=== PATIENT | female | born 1955 | race Caucasian/White ===

== ENCOUNTER 2017-01-05 08:09 | Outpatient (CLI) ==
--- NOTE | 2017-01-05 09:42 | MAMMO ---
EXAM: Bilateral digital screening mammogram (2-D and 3-D) History: Screening Comparison: Bilateral mammogram 05/01/2014 Findings: MLO and CC views of bilateral breasts demonstrate scattered fibroglandular breast parenchy ma. CAD was reviewed by the radiologist. Tomosynthesis was performed. There are no dominant masses, no suspicious microcalcifications and no architectural distortions Impression: Stable negative mammogram. Recommend followup routine screening mammography in 1 year. BIRADS 1
== END 2017-01-05 08:10 | disposition home or self-care (01) ==
LOC: RAD 08:09
PROVIDERS: ATTEND Family Medicine
DX: Z12.31 Encounter for screening mammogram for malignant neoplasm of breast (principal)
CPT/HCPCS: 77067

== ENCOUNTER 2018-01-30 | Outpatient (RCR) | END 2018-02-04 23:59 | disposition short-term general hospital (02) ==

== ENCOUNTER 2018-03-06 14:00 | Outpatient (RCR) ==
--- NOTE | 2018-02-06 15:33 | RS.OPPTDN ---
Subjective Date of Note: 02/06/18 Visit #: 3 Number of visits approved by Insurance: NA Date of Evaluation: 01/30/18 Payer Source: Insurance Treatment Diagnosis: acute complete traumatic rotator cuff tear, OA AC joint, impingement syn. Current Subjective/complaints:: Patient reports increased stuiffness today.She is doing the exercises for the hand/wrist and elbow.We discussed for her to do the pendulum exercises to assist with stiffness. *Precautions: must wear sling at all times except during therapy. Pain Assessment - Pain Description Pain Location: R shoulder Pain Description: Dull, Aching Current Pain Intensity: 2-3 at rest - Treatment Modality: Ultrasound Parameters/Method Applied: 10 mins. @ 1.5 w/cm 2 ,continuous mode to R shoulder. Patient Position: Supine - Heat/Cryotherapy Treatment: Cryotherapy Interventions - Exercise/Activities/Manual Therapy Exercises/Activities: 30 mins. PROM R shld flex, abd, ER.Began passive IR today also ( is now 3 weeks post-op ).HEP review is tominclude pendulum ex. Total minutes of Exercise: 30 Manual Therapy: N/A Total minutes of Manual Therapy: 0 HOME EXERCISE PROGRAM: pt given written HEP including: finger opposition, wrist flex/ext, forearm sup/pronation, elbow flex/ext, pendulum ex. - Charges Timed Code Treatment Minutes: 40 Total Treatment Time: 60 Procedures billed for this date of service:: ex 2, ,US , cp Short Term Goals Goal #1: pt independent with initial HEP Goal to be met by: 02/20/18 Progress towards Goal:: Progressing Goal #2: pt with improved AAROM R shld flex 65 abd 45 Goal to be met by: 02/20/18 (PROM) Progress towards Goal:: Progressing Goal #3: pt rate pain <7/10 with activity Goal to be met by: 02/20/18 Progress towards Goal:: Progressing Goal #4: pt able to don/doff brace independently Goal to be met by: 02/20/18 (NA) Progress towards Goal:: Progressing [employer] Goals Goal #1: pt with improved R shld ROM flex 110 abd 90, ER 45 Goal to be met by: 03/13/18 Goal #2: Improve strength R UE 4- to 4/5 Goal to be met by: 03/13/18 Goal #3: pt report ability to perform ADL's independently with less pain Goal to be met by: 03/13/18 Goal #4: Normal sleep pattern. Goal to be met by: 01/21/15 Plan Dates of Penitentiary Goals: 03/13/18 Expiration date of current Insurance Approval:: NA PLAN: Cont. skilled PT per RTC protocol,is now 3 weeks post-op.
--- NOTE | 2018-02-08 15:08 | RS.OPPTDN ---
Subjective Date of Note: 02/08/18 Visit #: 4 Number of visits approved by Insurance: NA Date of Evaluation: 01/30/18 Payer Source: Insurance Treatment Diagnosis: acute complete traumatic rotator cuff tear, OA AC joint, impingement syn. Current Subjective/complaints:: Reports the L shoulder is aching more today. *Precautions: must wear sling at all times except during therapy. Pain Assessment - Pain Description Pain Location: R shoulder Pain Description: Tightness, Dull, Aching Current Pain Intensity: 2 at rest Worst Pain Intensity: 6-7 with passive motion initially - Treatment Modality: Electrical Stim Unattended Parameters/Method Applied: high volt x 20 mins. 2 electrodes to R shoulder @ 45 -55 pv. Patient Position: Supine - Heat/Cryotherapy Treatment: Cryotherapy (concurrent with e-stim) Interventions - Exercise/Activities/Manual Therapy Exercises/Activities: 35 mins. PROM R shld flex, abd, ER/IR Total minutes of Exercise: 35 Manual Therapy: N/A Total minutes of Manual Therapy: 0 HOME EXERCISE PROGRAM: pt given written HEP including: finger opposition, wrist flex/ext, forearm sup/pronation, elbow flex/ext, pendulum ex. - Charges Timed Code Treatment Minutes: 35 Total Treatment Time: 55 Procedures billed for this date of service:: cp,e-stim,ex 2 Assessment: Increased guarding today ,but no loss of passive motion.Cont. per RTC protocol. Patient Education: Education of diagnosis, Body/Joint mechanics, Home Exercise Program, Home Safety, Activity Modification, Education of Plan of Care Patient demonstrates compliance with HEP?: Yes Short Term Goals Goal #1: pt independent with initial HEP Goal to be met by: 02/20/18 Progress towards Goal:: Progressing Goal #2: pt with improved AAROM R shld flex 65 abd 45 Goal to be met by: 02/20/18 (PROM) Progress towards Goal:: Progressing Goal #3: pt rate pain <7/10 with activity Goal to be met by: 02/20/18 Goal #4: pt able to don/doff brace independently Goal to be met by: 02/20/18 (NA) Progress towards Goal:: Progressing [facility] Goals Goal #1: pt with improved R shld ROM flex 110 abd 90, ER 45 Goal to be met by: 03/13/18 Goal #2: Improve strength R UE 4- to 4/5 Goal to be met by: 03/13/18 Goal #3: pt report ability to perform ADL's independently with less pain Goal to be met by: 03/13/18 Goal #4: Normal sleep pattern. Goal to be met by: 01/21/15 Progress towards goal: Progressing Plan Dates of Ob/Gyn Doctor Goals: 03/13/18 Expiration date of current Insurance Approval:: NA PLAN: Cont. skilled PT per RTC protocol as ordered by Dr. Chaney.
--- NOTE | 2018-02-11 15:12 | RS.OPPTDN ---
Subjective Date of Note: 02/11/18 Visit #: 5 Number of visits approved by Insurance: NA Date of Evaluation: 01/30/18 Payer Source: Insurance Treatment Diagnosis: acute complete traumatic rotator cuff tear, OA AC joint, impingement syn. Current Subjective/complaints:: Patient is compliant to wearing the sling , feels the R shoulder is a little better today. *Precautions: must wear sling at all times except during therapy. Pain Assessment - Pain Description Pain Location: R shoulder Pain Description: Dull, Aching Current Pain Intensity: 2/10 - Treatment Modality: Ultrasound Parameters/Method Applied: 10 mins. @ 1.5 w/cm2 ,cont. mode to R shoulder - Heat/Cryotherapy Treatment: Hot Pack (20 mis. prior to US) Interventions - Exercise/Activities/Manual Therapy Exercises/Activities: 30 mins. PROM R shld flex, abd, ER/IR Total minutes of Exercise: 30 Manual Therapy: N/A Total minutes of Manual Therapy: 0 HOME EXERCISE PROGRAM: pt given written HEP including: finger opposition, wrist flex/ext, forearm sup/pronation, elbow flex/ext, pendulum ex. - Charges Timed Code Treatment Minutes: 40 Total Treatment Time: 60 Procedures billed for this date of service:: hp,US,ex 2 Assessment: Patient has less intense R shoulder pain at rest,is les guarded as the passive ROM progresses.She is doing the hand,wrist ,elbow AROM ,along with pendulum exercises.She is compliant to wearing the sling and HEP . Patient Education: Education of diagnosis, Body/Joint mechanics, Home Exercise Program, Home Safety, Activity Modification, Education of Plan of Care Patient demonstrates compliance with HEP?: Yes Short Term Goals Goal #1: pt independent with initial HEP Goal to be met by: 02/20/18 Progress towards Goal:: Progressing Goal #2: pt with improved AAROM R shld flex 65 abd 45 Goal to be met by: 02/20/18 (PROM) Progress towards Goal:: Progressing Goal #3: pt rate pain <7/10 with activity Goal to be met by: 02/20/18 Progress towards Goal:: Progressing Goal #4: pt able to don/doff brace independently Goal to be met by: 02/20/18 (NA) Progress towards Goal:: Progressing [employer]per Goals Goal #1: pt with improved R shld ROM flex 110 abd 90, ER 45 Goal to be met by: 03/13/18 Goal #2: Improve strength R UE 4- to 4/5 Goal to be met by: 03/13/18 Goal #3: pt report ability to perform ADL's independently with less pain Goal to be met by: 03/13/18 Goal #4: Normal sleep pattern. Goal to be met by: 01/21/15 Progress towards goal: Progressing Plan Dates of Nursing Home Goals: 03/13/18 Expiration date of current Insurance Approval:: NA PLAN: Cont. skilled PT ,progress as the RTC protocol allows.
--- NOTE | 2018-02-13 15:18 | RS.OPPTDN ---
Subjective Date of Note: 02/13/18 Visit #: 6 Number of visits approved by Insurance: NA Date of Evaluation: 01/30/18 Payer Source: Insurance Treatment Diagnosis: acute complete traumatic rotator cuff tear, OA AC joint, impingement syn. Current Subjective/complaints:: Patient reports slight elevartion of her pain today. *Precautions: must wear sling at all times except during therapy. Pain Assessment - Pain Description Pain Location: R shoulder Pain Description: Dull, Aching Current Pain Intensity: 3-4/10 - Treatment Modality: Ultrasound Parameters/Method Applied: 10 mins. to R shoulder,cont. mode @1.5 w/cm2. Patient Position: Supine - Heat/Cryotherapy Treatment: Hot Pack (20 mins. to R shoulder prior to exercises) Interventions - Exercise/Activities/Manual Therapy Exercises/Activities: 20 mins. PROM R shld flex, abd, ER/IR Total minutes of Exercise: 20 Manual Therapy: N/A Total minutes of Manual Therapy: 0 HOME EXERCISE PROGRAM: pt given written HEP including: finger opposition, wrist flex/ext, forearm sup/pronation, elbow flex/ext, pendulum ex. - Charges Timed Code Treatment Minutes: 30 Total Treatment Time: 50 Procedures billed for this date of service:: hp,ex ,US Assessment: Patient is more guarded today due to increased pain ,but as the exercises progressed she relaxed better.The eccentric motions elevate her pain today ,but again ,this is due to muscle guarding.She is compliant to HEP and wearing the sling as instructed. Patient Education: Education of diagnosis, Body/Joint mechanics, Home Exercise Program, Home Safety, Activity Modification, Education of Plan of Care Patient demonstrates compliance with HEP?: Yes Short Term Goals Goal #1: pt independent with initial HEP Goal to be met by: 02/20/18 Progress towards Goal:: Progressing Goal #2: pt with improved AAROM R shld flex 65 abd 45 Goal to be met by: 02/20/18 (PROM) Progress towards Goal:: Progressing Goal #3: pt rate pain <7/10 with activity Goal to be met by: 02/20/18 Progress towards Goal:: Progressing Goal #4: pt able to don/doff brace independently Goal to be met by: 02/20/18 (NA) Progress towards Goal:: Progressing Detention Goals Goal #1: pt with improved R shld ROM flex 110 abd 90, ER 45 Goal to be met by: 03/13/18 Goal #2: Improve strength R UE 4- to 4/5 Goal to be met by: 03/13/18 Goal #3: pt report ability to perform ADL's independently with less pain Goal to be met by: 03/13/18 Goal #4: Normal sleep pattern. Goal to be met by: 01/21/15 Progress towards goal: Progressing Plan Dates of Detention Goals: 03/13/18 Expiration date of current Insurance Approval:: NA PLAN: Cont. skilled PT per RTC protocol,resulting increased strength and motion of the R shoulder without pain present.
--- NOTE | 2018-02-15 15:27 | RS.OPPTDN ---
Subjective Date of Note: 02/15/18 Visit #: 7 Number of visits approved by Insurance: NA Date of Evaluation: 01/30/18 Payer Source: Insurance Treatment Diagnosis: acute complete traumatic rotator cuff tear, OA AC joint, impingement syn. Current Subjective/complaints:: She reports she was able to get herself dressed more easily today.She is compliant to wearing sling . *Precautions: must wear sling at all times except during therapy. Pain Assessment - Pain Description Pain Location: R shoulder Pain Description: Dull, Aching Current Pain Intensity: 3 - Treatment Modality: Ultrasound Parameters/Method Applied: 10 mins. @ 1.5 w/cm2,continuous mode to R shoulder. Patient Position: Sitting - Heat/Cryotherapy Treatment: Hot Pack (20 mins. prior to exercises and US) Interventions - Exercise/Activities/Manual Therapy Exercises/Activities: 30 mins. (in sitting position today) of PROM R shld flex, abd, ER/IR,AROM for biceps curls,wrist flex/ext,sup/pronation. Total minutes of Exercise: 30 Manual Therapy: N/A HOME EXERCISE PROGRAM: pt given written HEP including: finger opposition, wrist flex/ext, forearm sup/pronation, elbow flex/ext, pendulum ex. - Charges Timed Code Treatment Minutes: 40 Total Treatment Time: 60 Procedures billed for this date of service:: hp,US ex 2 Assessment: Patient tolerating slight increase in PROM all directions ,now in sitting for exercises.She is compliant to HEP,doing pendulum exercises for gentle shoulder motion,wears sling as instructed . Patient Education: Education of diagnosis, Body/Joint mechanics, Home Exercise Program, Home Safety, Activity Modification, Education of Plan of Care Patient demonstrates compliance with HEP?: Yes Short Term Goals Goal #1: pt independent with initial HEP Goal to be met by: 02/20/18 Progress towards Goal:: Progressing Goal #2: pt with improved AAROM R shld flex 65 abd 45 Goal to be met by: 02/20/18 (PROM) Progress towards Goal:: Progressing Goal #3: pt rate pain <7/10 with activity Goal to be met by: 02/20/18 Progress towards Goal:: Progressing Goal #4: pt able to don/doff brace independently Goal to be met by: 02/20/18 (NA) Progress towards Goal:: Partially Met [employer] Goals Goal #1: pt with improved R shld ROM flex 110 abd 90, ER 45 Goal to be met by: 03/13/18 Goal #2: Improve strength R UE 4- to 4/5 Goal to be met by: 03/13/18 Goal #3: pt report ability to perform ADL's independently with less pain Goal to be met by: 03/13/18 Progress towards goal: Progressing Goal #4: Normal sleep pattern. Goal to be met by: 01/21/15 Progress towards goal: Progressing Plan Dates of [employer] Goals: 03/13/18 Expiration date of current Insurance Approval:: NA PLAN: Cont .skilled PT per RTC surgery,is 4 1/2 weeks post-op today.
--- NOTE | 2018-02-18 15:22 | RS.OPPTDN ---
Subjective Date of Note: 02/18/18 Visit #: 8 Number of visits approved by Insurance: NA Date of Evaluation: 01/30/18 Payer Source: Insurance Treatment Diagnosis: acute complete traumatic rotator cuff tear, OA AC joint, impingement syn. Current Subjective/complaints:: Reports the R shoulder pain is about the same as last visit. *Precautions: must wear sling at all times except during therapy. Pain Assessment - Pain Description Pain Location: R shoulder Pain Description: Dull, Aching - Treatment Modality: Ultrasound Parameters/Method Applied: 10 mins. @ 1.5 w/cm2,continuous mode to R shoulder area. - Heat/Cryotherapy Treatment: Hot Pack (20 mins. prior to exercises and US) Interventions - Exercise/Activities/Manual Therapy Exercises/Activities: 30 mins. (in sitting position today) of PROM R shld flex, abd, ER/IR,AROM for biceps curls,wrist flex/ext,sup/pronation. Total minutes of Exercise: 30 Manual Therapy: N/A Total minutes of Manual Therapy: 0 HOME EXERCISE PROGRAM: pt given written HEP including: finger opposition, wrist flex/ext, forearm sup/pronation, elbow flex/ext, pendulum ex. - Charges Timed Code Treatment Minutes: 40 Total Treatment Time: 60 Procedures billed for this date of service:: hp,ex 2,US Assessment: Patient has improved IR/ER passively in neutral position .She tolerates passive abduction with out increased pain.The initial shoulder elevation passively causes pain ,but this decreases as the reps. progress , along with cues to relax.She continues to be compliant to wearing the sling, also does HEP ,including the pendulum to relax the shoulder. Patient Education: Education of diagnosis, Body/Joint mechanics, Home Exercise Program, Home Safety, Activity Modification, Education of Plan of Care Patient demonstrates compliance with HEP?: Yes Short Term Goals Goal #1: pt independent with initial HEP Goal to be met by: 02/20/18 Progress towards Goal:: Progressing Goal #2: pt with improved AAROM R shld flex 65 abd 45 Goal to be met by: 02/20/18 (PROM) Progress towards Goal:: Progressing Goal #3: pt rate pain <7/10 with activity Goal to be met by: 02/20/18 Progress towards Goal:: Partially Met Goal #4: pt able to don/doff brace independently Goal to be met by: 02/20/18 (independent with doffing ) Progress towards Goal:: Partially Met [facility] Home Goals Goal #1: pt with improved R shld ROM flex 110 abd 90, ER 45 Goal to be met by: 03/13/18 Goal #2: Improve strength R UE 4- to 4/5 Goal to be met by: 03/13/18 (still doing PROM) Goal #3: pt report ability to perform ADL's independently with less pain Goal to be met by: 03/13/18 Progress towards goal: Progressing Goal #4: Normal sleep pattern. Goal to be met by: 01/21/15 Progress towards goal: Progressing Plan Dates of [employer] Goals: 03/13/18 Expiration date of current Insurance Approval:: NA PLAN: Continue RTC protocol,will be 5 weeks post-op tomorrow.
--- NOTE | 2018-02-20 15:23 | RS.OPPTDN ---
Subjective Date of Note: 02/20/18 Visit #: 9 Number of visits approved by Insurance: NA Date of Evaluation: 01/30/18 Payer Source: Insurance Treatment Diagnosis: acute complete traumatic rotator cuff tear, OA AC joint, impingement syn. Current Subjective/complaints:: Patient reports the R arm feels heavier today , but no increased aching or sharp pain currently.She continues to be compliant to wearing the sling.She was 5 weeks post-op yesterday. *Precautions: must wear sling at all times except during therapy. Pain Assessment - Pain Description Pain Location: R shoulder Pain Description: Dull, Aching Current Pain Intensity: 3 - Treatment Modality: Ultrasound Parameters/Method Applied: 10 mins. @ 1.5 w/cm2 ,continuous mode to R shoulder. - Heat/Cryotherapy Treatment: Hot Pack (20 mins. prior to exercises) Interventions - Exercise/Activities/Manual Therapy Exercises/Activities: 25 mins. (in sitting position today) of PROM R shld flex, abd, ER/IR,AROM for biceps curls,wrist flex/ext,sup/pronation.Pendulum exercises demonstrated to check her technique ( which is correct ). Total minutes of Exercise: 25 Manual Therapy: N/A Total minutes of Manual Therapy: 0 HOME EXERCISE PROGRAM: pt given written HEP including: finger opposition, wrist flex/ext, forearm sup/pronation, elbow flex/ext, pendulum ex. - Charges Timed Code Treatment Minutes: 35 Total Treatment Time: 55 Procedures billed for this date of service:: hp,ex 2,US Assessment: Patient has increased difficulty relaxing today with shoulder elevation ,but continues to tolerate the other motions well.We discussed the precautions ,as she is 5 weeks post-op,understands she is still in the passive phase ,will advance her exercises at the end of next week. Patient Education: Education of diagnosis, Body/Joint mechanics, Home Exercise Program, Home Safety, Activity Modification, Education of Plan of Care Patient demonstrates compliance with HEP?: Yes Short Term Goals Goal #1: pt independent with initial HEP Goal to be met by: 02/20/18 Progress towards Goal:: Progressing Goal #2: pt with improved AAROM R shld flex 65 abd 45 Goal to be met by: 02/20/18 (PROM) Progress towards Goal:: Progressing Goal #3: pt rate pain <7/10 with activity Goal to be met by: 02/20/18 Progress towards Goal:: Partially Met Goal #4: pt able to don/doff brace independently Goal to be met by: 02/20/18 (independent with doffing ) Progress towards Goal:: Partially Met (Able to doff,needs assist with donning) [facility] Goals Goal #1: pt with improved R shld ROM flex 110 abd 90, ER 45 Goal to be met by: 03/13/18 Goal #2: Improve strength R UE 4- to 4/5 Goal to be met by: 03/13/18 (still doing PROM) Goal #3: pt report ability to perform ADL's independently with less pain Goal to be met by: 03/13/18 Progress towards goal: Progressing Goal #4: Normal sleep pattern. Goal to be met by: 01/21/15 Progress towards goal: Progressing Plan Dates of [facility] Goals: 03/13/18 Expiration date of current Insurance Approval:: NA PLAN: Cont. skilled PT per RTC protocol,progress to Phase II at end of next week.
--- NOTE | 2018-02-22 15:32 | RS.OPPTDN ---
Subjective Date of Note: 02/22/18 Visit #: 10 Number of visits approved by Insurance: NA Date of Evaluation: 01/30/18 Payer Source: Insurance Treatment Diagnosis: acute complete traumatic rotator cuff tear, OA AC joint, impingement syn. Current Subjective/complaints:: Patient reports the R shoulder feels better today,slightly less pain. *Precautions: must wear sling at all times except during therapy. Pain Assessment - Pain Description Pain Location: R shoulder Pain Description: Dull, Aching Current Pain Intensity: 2 - Treatment Modality: Ultrasound Parameters/Method Applied: 10 mins. @ 1.5 w/cm2,cont. mode. Patient Position: Sitting - Heat/Cryotherapy Treatment: Hot Pack (20 mis. prior to ex and US) Interventions - Exercise/Activities/Manual Therapy Exercises/Activities: 30 mins. (in sitting position today) of PROM R shld flex, abd, ER/IR. Total minutes of Exercise: 30 Manual Therapy: N/A Total minutes of Manual Therapy: 0 HOME EXERCISE PROGRAM: pt given written HEP including: finger opposition, wrist flex/ext, forearm sup/pronation, elbow flex/ext, pendulum ex. - Charges Timed Code Treatment Minutes: 30 Total Treatment Time: 60 Procedures billed for this date of service:: hp,ex 2,US Assessment: Progressing well,less tightness at available end range of each motion.She relaxes more with eccentrics.The external rotation has a firmer end feel than other motions ,but she understands the RTC protocol and to not force any active motion.She continues to do HEP regularly,motivated to improve. Patient Education: Education of diagnosis, Body/Joint mechanics, Home Exercise Program, Home Safety, Activity Modification, Education of Plan of Care Patient demonstrates compliance with HEP?: Yes Short Term Goals Goal #1: pt independent with initial HEP Goal to be met by: 02/20/18 Progress towards Goal:: Progressing Goal #2: pt with improved AAROM R shld flex 65 abd 45 Goal to be met by: 02/20/18 (PROM) Progress towards Goal:: Progressing Goal #3: pt rate pain <7/10 with activity Goal to be met by: 02/20/18 Progress towards Goal:: Partially Met Goal #4: pt able to don/doff brace independently Goal to be met by: 02/20/18 (independent with doffing ) Progress towards Goal:: Partially Met (Able to doff,needs assist with donning) [employer] Goals Goal #1: pt with improved R shld ROM flex 110 abd 90, ER 45 Goal to be met by: 03/13/18 Progress towards goal: Progressing Goal #2: Improve strength R UE 4- to 4/5 Goal to be met by: 03/13/18 (still doing PROM) Goal #3: pt report ability to perform ADL's independently with less pain Goal to be met by: 03/13/18 Progress towards goal: Progressing Goal #4: Normal sleep pattern. Goal to be met by: 01/21/15 Progress towards goal: Progressing Plan Dates of Skilled Nursing Goals: 03/13/18 Expiration date of current Insurance Approval:: NA PLAN: Cont. skilled PT per RTC protocol.
--- NOTE | 2018-02-25 15:21 | RS.OPPTDN ---
Subjective Date of Note: 02/25/18 Visit #: 11 Number of visits approved by Insurance: NA Date of Evaluation: 01/30/18 Payer Source: Insurance Treatment Diagnosis: acute complete traumatic rotator cuff tear, OA AC joint, impingement syn. Current Subjective/complaints:: Patient reports minimal pain ,averaging 2/10 the past few days.She will be 6 weeks post-op tomorrow. *Precautions: must wear sling at all times except during therapy. Pain Assessment - Pain Description Pain Location: R shoulder Pain Description: Dull, Aching Current Pain Intensity: 2/10 - Treatment Modality: Ultrasound Parameters/Method Applied: 10 mins. @ 1.5 w/cm2 to R shoulder , continuous mode. Patient Position: Sitting - Heat/Cryotherapy Treatment: Hot Pack (20 mins. prior to exercises and US) Interventions - Exercise/Activities/Manual Therapy Exercises/Activities: 30 mins. (in sitting position today) of PROM R shld flex, abd, ER/IR.Isometrics ,5 reps. each of IR/ER with arm at side,abduction,forward flexion. Total minutes of Exercise: 30 Manual Therapy: N/A Total minutes of Manual Therapy: 0 HOME EXERCISE PROGRAM: pt given written HEP including: finger opposition, wrist flex/ext, forearm sup/pronation, elbow flex/ext, pendulum ex. - Charges Timed Code Treatment Minutes: 40 Total Treatment Time: 60 Procedures billed for this date of service:: hp,ex 2,US Assessment: Patient report less soreness throughout the day when at rest, tolerates the isometrics with slight discomfort ,especially with external rotation.The passive motion is functional for abd/scaption ,but limited and guarding present with rotation today.She is compliant to HEP. Patient Education: Education of diagnosis, Body/Joint mechanics, Home Exercise Program, Home Safety, Activity Modification, Education of Plan of Care Patient demonstrates compliance with HEP?: Yes Short Term Goals Goal #1: pt independent with initial HEP Goal to be met by: 02/20/18 Progress towards Goal:: Progressing Goal #2: pt with improved AAROM R shld flex 65 abd 45 Goal to be met by: 02/20/18 (PROM) Progress towards Goal:: Progressing Goal #3: pt rate pain <7/10 with activity Goal to be met by: 02/20/18 Progress towards Goal:: Partially Met Goal #4: pt able to don/doff brace independently Goal to be met by: 02/20/18 (independent with doffing ) Progress towards Goal:: Partially Met (Able to doff,needs assist with donning) Structural Engineer Goals Goal #1: pt with improved R shld ROM flex 110 abd 90, ER 45 Goal to be met by: 03/13/18 Progress towards goal: Progressing Goal #2: Improve strength R UE 4- to 4/5 Goal to be met by: 03/13/18 (still doing PROM,isometrics initiated today) Goal #3: pt report ability to perform ADL's independently with less pain Goal to be met by: 03/13/18 Progress towards goal: Progressing Goal #4: Normal sleep pattern. Goal to be met by: 01/21/15 Progress towards goal: Progressing Plan Dates of Structural Engineer Goals: 03/13/18 Expiration date of current Insurance Approval:: NA PLAN: Cont. skilled PT per RTC protocol,will be 6 weeks post-op tomorrow.
--- NOTE | 2018-02-27 16:01 | RS.OPPTDN ---
Subjective Date of Note: 02/27/18 Visit #: 12 Number of visits approved by Insurance: NA Date of Evaluation: 01/30/18 Payer Source: Insurance Treatment Diagnosis: acute complete traumatic rotator cuff tear, OA AC joint, impingement syn. Current Subjective/complaints:: Patient reports beginning the isometrics last session made her R shoulder very sore ,did not sleep well that night.We discussed we will hold the isometrics today and assess the pain on the next visit.She also reports working 3 hours today. *Precautions: must wear sling at all times except during therapy. Pain Assessment - Pain Description Pain Location: R shoulder Pain Description: Tightness, Dull, Aching, Chronic Current Pain Intensity: 10 - Treatment Modality: Ultrasound Parameters/Method Applied: 10 mins. @ 1.5 w/cm2 ,continuous mode to R shoulder. Patient Position: Sitting - Heat/Cryotherapy Treatment: Hot Pack (20 mins. prior to exercises and US) Interventions - Exercise/Activities/Manual Therapy Exercises/Activities: 30 mins. (in sitting position today) of PROM R shld flex, scaption,abd, ER/IR. Total minutes of Exercise: 30 Manual Therapy: N/A Total minutes of Manual Therapy: 0 HOME EXERCISE PROGRAM: pt given written HEP including: finger opposition, wrist flex/ext, forearm sup/pronation, elbow flex/ext, pendulum ex. - Charges Timed Code Treatment Minutes: 30 Total Treatment Time: 60 Procedures billed for this date of service:: hp,ex 2,US Assessment: Significant increase in muscle guarding present today with internal /external rotation with R UE in neutral position.She also has increased pain with return motion (eccentric) from shoulder elevation today.She also reports it has been approx. 4 hours since taking Ibuprofen.She reports pain meds. make her itch and cannot take them. Patient Education: Education of diagnosis, Body/Joint mechanics, Home Exercise Program, Home Safety, Activity Modification, Education of Plan of Care Patient demonstrates compliance with HEP?: Yes Short Term Goals Goal #1: pt independent with initial HEP Goal to be met by: 02/20/18 Progress towards Goal:: Progressing Goal #2: pt with improved AAROM R shld flex 65 abd 45 Goal to be met by: 02/20/18 (PROM) Progress towards Goal:: No Change Goal #3: pt rate pain <7/10 with activity Goal to be met by: 02/20/18 Progress towards Goal:: Partially Met (Pain slightly elevated at rest today , but increases significantly with passive motion today.) Goal #4: pt able to don/doff brace independently Goal to be met by: 02/20/18 (independent with doffing ) Progress towards Goal:: Partially Met (Able to doff,needs assist with donning) Long-Term Goals Goal #1: pt with improved R shld ROM flex 110 abd 90, ER 45 Goal to be met by: 03/13/18 Progress towards goal: No Change Goal #2: Improve strength R UE 4- to 4/5 Goal to be met by: 03/13/18 (PROM only) Goal #3: pt report ability to perform ADL's independently with less pain Goal to be met by: 03/13/18 Progress towards goal: No Change Goal #4: Normal sleep pattern. Goal to be met by: 01/21/15 Progress towards goal: Regressing (Reports not sleeping Sunday night after last session) Plan Dates of Long-Term Goals: 03/13/18 Expiration date of current Insurance Approval:: NA PLAN: Cont skilled PT per RTC protocol,discuss patient status with supervising PT.She was 6 weeks post-op yesterday.
--- NOTE | 2018-03-01 15:25 | RS.OPPTDN ---
Subjective Date of Note: 03/01/18 Visit #: 13 Number of visits approved by Insurance: NA Date of Evaluation: 01/30/18 Payer Source: Insurance Treatment Diagnosis: acute complete traumatic rotator cuff tear, OA AC joint, impingement syn. Current Subjective/complaints:: Patient reports the shoulder feel slightly better today,slept better last night. *Precautions: must wear sling at all times except during therapy. Pain Assessment - Pain Description Pain Location: R shoulder Pain Description: Tightness, Dull, Aching, Chronic Current Pain Intensity: 3/10 - Heat/Cryotherapy Treatment: Cryotherapy (20 mins. after exercises) Interventions - Exercise/Activities/Manual Therapy Exercises/Activities: 40 mins. (in sitting position today) of PROM R shld flex, scaption,abd, ER/IR.Supervising PT present to asses her motion prior to REHAB OFFICE COORDINATOR doing the PROM. Total minutes of Exercise: 40 Manual Therapy: N/A Total minutes of Manual Therapy: 0 HOME EXERCISE PROGRAM: pt given written HEP including: finger opposition, wrist flex/ext, forearm sup/pronation, elbow flex/ext, pendulum ex. - Charges Timed Code Treatment Minutes: 40 Total Treatment Time: 60 Procedures billed for this date of service:: ex 3,cp Assessment: Patient less guarded today .The external rotation is improving slowly ,but the PT and this REHAB OFFICE COORDINATOR discussed due to her also having the excision of the distal clavicle could be a factor for the external rotation being limited.She has increased passve elevation/scaption,and abduction. Patient Education: Education of diagnosis, Body/Joint mechanics, Home Exercise Program, Home Safety, Activity Modification, Education of Plan of Care Patient demonstrates compliance with HEP?: Yes Short Term Goals Goal #1: pt independent with initial HEP Goal to be met by: 02/20/18 Progress towards Goal:: Partially Met (Not progressed to AROM due to being 6 1/ 2 weeks post-op today) Goal #2: pt with improved AAROM R shld flex 65 abd 45 Goal to be met by: 02/20/18 (PROM only per protocol) Goal #3: pt rate pain <7/10 with activity Goal to be met by: 02/20/18 Progress towards Goal:: Partially Met (3/10 pain most of this week,but is not doing active ROM as limited by the RTC protocol) Goal #4: pt able to don/doff brace independently Goal to be met by: 02/20/18 (independent with doffing ) Progress towards Goal:: Partially Met (Able to doff,needs assist with donning) Shelter Goals Goal #1: pt with improved R shld ROM flex 110 abd 90, ER 45 Goal to be met by: 03/13/18 Progress towards goal: No Change Goal #2: Improve strength R UE 4- to 4/5 Goal to be met by: 03/13/18 (PROM only) Goal #3: pt report ability to perform ADL's independently with less pain Goal to be met by: 03/13/18 Progress towards goal: No Change Goal #4: Normal sleep pattern. Goal to be met by: 01/21/15 Progress towards goal: Regressing (Reports not sleeping Sunday night after last session) Plan Dates of Paper Bag Inspector Goals: 03/13/18 Expiration date of current Insurance Approval:: NA PLAN: Cont. skilled PT per RTC protocol,strengthening and stretching exercises to achieve PLOF in the R shoulder.
--- NOTE | 2018-03-04 15:16 | RS.OPPTDN ---
Subjective Date of Note: 03/04/18 Visit #: 14 Number of visits approved by Insurance: NA Date of Evaluation: 01/30/18 Payer Source: Insurance Treatment Diagnosis: acute complete traumatic rotator cuff tear, OA AC joint, impingement syn. 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 *Precautions: must wear sling at all times except during therapy. Pain Assessment - Pain Description Pain Location: R shoulder Pain Description: Dull, Aching Current Pain Intensity: 3/10 - Heat/Cryotherapy Treatment: Hot Pack (heat 20 mins. prior to exercises,cold 15 mins. after), Cryotherapy Interventions - Exercise/Activities/Manual Therapy Exercises/Activities: 30 mins. (in supine position today for shoulder elevation ),biceps/triceps with elbow at side,IR/ER actively in pain free ROM.Isometrics only to R shoulder in all directions per protocol.(Beginning Phase II today.) Total minutes of Exercise: 30 Manual Therapy: N/A Total minutes of Manual Therapy: 0 HOME EXERCISE PROGRAM: pt given written HEP including: finger opposition, wrist flex/ext, forearm sup/pronation, elbow flex/ext, pendulum ex. - Charges Timed Code Treatment Minutes: 30 Total Treatment Time: 65 Procedures billed for this date of service:: hp,ex 2,cp Assessment: Progressing well,increased passive motion with less guarding present today.She tolerates the AROM of biceps/triceps without difficulty.The active IR/ER with arm at side elicits slight increase in pain at available end range.She is attentive and compliant to RTC protocol. Patient Education: Education of diagnosis, Body/Joint mechanics, Home Exercise Program, Home Safety, Activity Modification, Education of Plan of Care Patient demonstrates compliance with HEP?: Yes Short Term Goals Goal #1: pt independent with initial HEP Goal to be met by: 02/20/18 Progress towards Goal:: Partially Met (Not progressed to AROM due to beginning phase II ,7 weeks post-op tomorrow.) Goal #2: pt with improved AAROM R shld flex 65 abd 45 Goal to be met by: 02/20/18 Progress towards Goal:: Met Goal #3: pt rate pain <7/10 with activity Goal to be met by: 02/20/18 Progress towards Goal:: Progressing Goal #4: pt able to don/doff brace independently Goal to be met by: 02/20/18 (independent with doffing ) Progress towards Goal:: Partially Met (Able to doff,needs assist with donning) Assisted Goals Goal #1: pt with improved R shld ROM flex 110 abd 90, ER 45 Goal to be met by: 03/13/18 Progress towards goal: Progressing Goal #2: Improve strength R UE 4- to 4/5 Goal to be met by: 03/13/18 Progress towards goal: Progressing Goal #3: pt report ability to perform ADL's independently with less pain Goal to be met by: 03/13/18 Goal #4: Normal sleep pattern. Goal to be met by: 01/21/15 Progress towards goal: Progressing Plan Dates of Assisted Goals: 03/13/18 Expiration date of current Insurance Approval:: NA PLAN: Progress per RTC protocol,beginning Phase II ( week 7 - 9 ),including AROM for biceps/triceps ,isometrics only for shoulder strengthening.
--- NOTE | 2018-03-06 15:11 | RS.OPPTDN ---
Subjective Date of Note: 03/06/18 Visit #: 15 Number of visits approved by Insurance: NA Date of Evaluation: 01/30/18 Payer Source: Insurance Treatment Diagnosis: acute complete traumatic rotator cuff tear, OA AC joint, impingement syn. Current Subjective/complaints:: Patient had follow-up appt. today at [facility]good report She has orders to continue PT per RTC protocol.She is to wear sling at work and while sleeping. *Precautions: must wear sling at all times except during therapy. Pain Assessment - Pain Description Pain Location: R shoulder Pain Description: Dull, Aching Current Pain Intensity: 2/10 - Heat/Cryotherapy Treatment: Hot Pack (20 mins. prior to exercises) Interventions - Exercise/Activities/Manual Therapy Exercises/Activities: 30 mins. (in supine position today for shoulder elevation) ,biceps/triceps with elbow at side,IR/ER actively in pain free ROM.Isometrics only to R shoulder in all directions per protocol.( Phase II now). Total minutes of Exercise: 30 Manual Therapy: N/A Total minutes of Manual Therapy: 0 HOME EXERCISE PROGRAM: pt given written HEP including: finger opposition, wrist flex/ext, forearm sup/pronation, elbow flex/ext, pendulum ex. - Charges Timed Code Treatment Minutes: 30 Total Treatment Time: 65 Procedures billed for this date of service:: hp,ex 2,cp Assessment: Continues to progress well,has increased PROM ,also has less intensity of pain with AAROM in all directions.She is compliant to RTC protocol. Patient Education: Education of diagnosis, Body/Joint mechanics, Home Exercise Program, Home Safety, Activity Modification, Education of Plan of Care Patient demonstrates compliance with HEP?: Yes Short Term Goals Goal #1: pt independent with initial HEP Goal to be met by: 02/20/18 Progress towards Goal:: Partially Met (Not progressed to AROM due to beginning phase II ,7 weeks post-op tomorrow.) Goal #2: pt with improved AAROM R shld flex 65 abd 45 Goal to be met by: 02/20/18 Progress towards Goal:: Met Goal #3: pt rate pain <7/10 with activity Goal to be met by: 02/20/18 Progress towards Goal:: Progressing Goal #4: pt able to don/doff brace independently Goal to be met by: 02/20/18 (independent with doffing ) Progress towards Goal:: Partially Met (Able to doff,needs assist with donning) Ultrasound Tech Goals Goal #1: pt with improved R shld ROM flex 110 abd 90, ER 45 Goal to be met by: 03/13/18 Progress towards goal: Progressing Goal #2: Improve strength R UE 4- to 4/5 Goal to be met by: 03/13/18 Progress towards goal: Progressing Goal #3: pt report ability to perform ADL's independently with less pain Goal to be met by: 03/13/18 Progress towards goal: Progressing Goal #4: Normal sleep pattern. Goal to be met by: 01/21/15 Progress towards goal: Progressing Plan Dates of Ultrasound Tech Goals: 03/13/18 Expiration date of current Insurance Approval:: NA PLAN: Cont. per RTC protocol,has new PT orders today ,still in Phase II.
== END 2018-03-07 23:59 ==
PROVIDERS: ATTEND Orthopaedic Surgery
DX: M75.101 Unspecified rotator cuff tear or rupture of right shoulder, not specified as traumatic (principal); M25.511 Pain in right shoulder; M25.611 Stiffness of right shoulder, not elsewhere classified; M62.81 Muscle weakness (generalized); Z98.890 Other specified postprocedural states

== ENCOUNTER 2018-03-20 15:00 | Outpatient (RCR) ==
--- NOTE | 2018-03-08 15:12 | RS.OPPTDN ---
Subjective Date of Note: 03/08/18 Visit #: 16 Number of visits approved by Insurance: NA Date of Evaluation: 01/30/18 Payer Source: Insurance Treatment Diagnosis: acute complete traumatic rotator cuff tear, OA AC joint, impingement syn. Current Subjective/complaints:: Patient reports increased difficulty sleeping last night ,but slept well two nights ago.She is working half days now,wearing sling at work or at home in bed. *Precautions: must wear sling at all times except during therapy. Pain Assessment - Pain Description Pain Description: Crushing (R shoulder), Dull, Aching, Chronic Current Pain Intensity: 4/10 - Heat/Cryotherapy Treatment: Hot Pack, Cryotherapy (20 mins. heat before ex,15 mins. cold after) Interventions - Exercise/Activities/Manual Therapy Exercises/Activities: 30 mins. (in supine position today for shoulder elevation) ,biceps/triceps with elbow at side,IR/ER actively in pain free ROM.Isometrics only to R shoulder in all directions per protocol.( Phase II now). Total minutes of Exercise: 30 Manual Therapy: N/A Total minutes of Manual Therapy: 0 HOME EXERCISE PROGRAM: pt given written HEP including: finger opposition, wrist flex/ext, forearm sup/pronation, elbow flex/ext, pendulum ex. - Charges Timed Code Treatment Minutes: 35 Total Treatment Time: 60 Procedures billed for this date of service:: hp,ex 2,cp Assessment: Patient continues to have improved passive rOM ,tolerates isometrics today with less pain .She is compliant to wearing sling as directed.The external rotation is the position that is the most uncomfortable to her .We discussed safety precautions,reminded to strengthen the biceps/ triceps,but no shoulder strengthening at this time. Patient Education: Education of diagnosis, Body/Joint mechanics, Home Exercise Program, Home Safety, Activity Modification, Education of Plan of Care Patient demonstrates compliance with HEP?: Yes Short Term Goals Goal #1: pt independent with initial HEP Goal to be met by: 02/20/18 Progress towards Goal:: Partially Met (Not progressed to AROM due to beginning phase II ,7 weeks post-op tomorrow.) Goal #2: pt with improved AAROM R shld flex 65 abd 45 Goal to be met by: 02/20/18 Progress towards Goal:: Met Goal #3: pt rate pain <7/10 with activity Goal to be met by: 02/20/18 Progress towards Goal:: Progressing Goal #4: pt able to don/doff brace independently Goal to be met by: 02/20/18 (independent with doffing ) Progress towards Goal:: Partially Met (Able to doff,needs assist with donning) Rail Loader Goals Goal #1: pt with improved R shld ROM flex 110 abd 90, ER 45 Goal to be met by: 03/13/18 Progress towards goal: Progressing Goal #2: Improve strength R UE 4- to 4/5 Goal to be met by: 03/13/18 Progress towards goal: Progressing Goal #3: pt report ability to perform ADL's independently with less pain Goal to be met by: 03/13/18 Progress towards goal: Progressing Goal #4: Normal sleep pattern. Goal to be met by: 01/21/15 Progress towards goal: Progressing Plan Dates of Rail Loader Goals: 03/13/18 Expiration date of current Insurance Approval:: NA PLAN: Cont. skilled PT per RTC protocol.
--- NOTE | 2018-03-11 15:12 | RS.OPPTDN ---
Subjective Date of Note: 03/11/18 Visit #: 17 Number of visits approved by Insurance: NA Date of Evaluation: 01/30/18 Payer Source: Insurance Treatment Diagnosis: acute complete traumatic rotator cuff tear, OA AC joint, impingement syn. Current Subjective/complaints:: Patient reports being out of sling all day yesterday,is compliant to wearing it at work or when sleeping. *Precautions: 03-06 ,patient is to wear sling at work or sleeping ,no abd. pillow Pain Assessment - Pain Description Pain Location: R shoulder Pain Description: Dull, Aching, Chronic Current Pain Intensity: 05/15 - Heat/Cryotherapy Treatment: Hot Pack, Cryotherapy (hot before/cold after exercises) Interventions - Exercise/Activities/Manual Therapy Exercises/Activities: 30 mins. sitting today,biceps/tricepsAROM with 1# and yellow theraband with elbow at side,IR/ER actively in pain free ROM.Isometrics only to R shoulder in all directions per protocol.( Phase II now). Total minutes of Exercise: 30 Manual Therapy: N/A Total minutes of Manual Therapy: 0 HOME EXERCISE PROGRAM: pt given written HEP including: finger opposition, wrist flex/ext, forearm sup/pronation, elbow flex/ext, pendulum ex. - Objective Findings Observations,measurements,etc.: Passive abduction 85 ,scaption to 120,IR/ER with arm at side 45 -50 degrees. - Charges Timed Code Treatment Minutes: 30 Total Treatment Time: 60 Procedures billed for this date of service:: hp,ex 2,cp Assessment: Patient progressing as expected by the protocol ,will be 8 weeks post-op. tomorrow.She is gradually increasing her daily activities ,working more ,is aware to wear sling at work or while asleep.She still needs cues to relax ,especially with eccentric motion ,returning from assisted elevation. Patient Education: Education of diagnosis, Body/Joint mechanics, Home Exercise Program, Home Safety, Activity Modification, Education of Plan of Care Patient demonstrates compliance with HEP?: Yes Short Term Goals Goal #1: pt independent with initial HEP Goal to be met by: 02/20/18 Progress towards Goal:: Partially Met (Not progressed to AROM due to beginning phase II ,7 weeks post-op tomorrow.) Goal #2: pt with improved AAROM R shld flex 65 abd 45 Goal to be met by: 02/20/18 Progress towards Goal:: Met Goal #3: pt rate pain <7/10 with activity Goal to be met by: 02/20/18 Progress towards Goal:: Progressing Comments:: Her activity is limited per the protocol,but pain is less than 7 generally Goal #4: pt able to don/doff brace independently Goal to be met by: 02/20/18 (independent with doffing ) Progress towards Goal:: Met (Able to doff,needs assist with donning) Chief Science Officer Goals Goal #1: pt with improved R shld ROM flex 110 abd 90, ER 45 Goal to be met by: 03/13/18 Progress towards goal: Progressing Goal #2: Improve strength R UE 4- to 4/5 Goal to be met by: 03/13/18 Progress towards goal: Progressing Comments: Increased in biceps/triceps ,but shoulder strengthening is not allowed yet Goal #3: pt report ability to perform ADL's independently with less pain Goal to be met by: 03/13/18 Progress towards goal: Progressing Goal #4: Normal sleep pattern. Goal to be met by: 01/21/15 Progress towards goal: Partially Met (Reports sleeping better longer,but sleeps on sofa propped up partially) Plan Dates of Chief Science Officer Goals: 03/13/18 Expiration date of current Insurance Approval:: NA PLAN: Cont. skilled PT ,is in PHASE II of RTC protocol.
--- NOTE | 2018-03-13 15:06 | RS.OPPTDN ---
Subjective Date of Note: 03/13/18 Visit #: 18 Number of visits approved by Insurance: NA Date of Evaluation: 01/30/18 Payer Source: Insurance Treatment Diagnosis: acute complete traumatic rotator cuff tear, OA AC joint, impingement syn. Current Subjective/complaints:: Patient reports working close to 6 hours today, wearing the sling as directed. *Precautions: 03-06 ,patient is to wear sling at work or sleeping ,no abd. pillow Pain Assessment - Pain Description Pain Location: R shoulder Pain Description: Dull, Aching, Chronic Current Pain Intensity: 3-4/10 - Heat/Cryotherapy Treatment: Hot Pack, Cryotherapy (heat before /cold after exercises) Interventions - Exercise/Activities/Manual Therapy Exercises/Activities: 30 mins. sitting today,biceps/tricepsAROM with yellow theraband with elbow at side,IR/ER actively in pain free ROM.Isometrics only to R shoulder in all directions per protocol.( Phase II now).Pasive abduction @ 73, elevation @ 118 ,external rotation 54 degrees. Total minutes of Exercise: 30 Manual Therapy: N/A Total minutes of Manual Therapy: 0 HOME EXERCISE PROGRAM: pt given written HEP including: finger opposition, wrist flex/ext, forearm sup/pronation, elbow flex/ext, pendulum ex. - Charges Timed Code Treatment Minutes: 30 Total Treatment Time: 60 Procedures billed for this date of service:: hp,ex2,cp Assessment: Patient progressing ,has less muscle guarding present today as exercises progressed.She is gradually increasing her time at work.She is tolerating the eccentric motions with less pain today.The supervising PT present ,and we discussed the POC per RTC protocol with patient . Patient Education: Education of diagnosis, Body/Joint mechanics, Home Exercise Program, Home Safety, Activity Modification, Education of Plan of Care Patient demonstrates compliance with HEP?: Yes Short Term Goals Goal #1: pt independent with initial HEP Goal to be met by: 02/20/18 Progress towards Goal:: Partially Met (Not progressed to AROM due to beginning phase II ,7 weeks post-op tomorrow.) Goal #2: pt with improved AAROM R shld flex 65 abd 45 Goal to be met by: 02/20/18 Progress towards Goal:: Met Goal #3: pt rate pain <7/10 with activity Goal to be met by: 02/20/18 Progress towards Goal:: Met Goal #4: pt able to don/doff brace independently Goal to be met by: 02/20/18 Progress towards Goal:: Met (Able to doff,needs assist with donning) [facility] Goals Goal #1: pt with improved R shld ROM flex 110 abd 90, ER 45 Goal to be met by: 03/13/18 Progress towards goal: Progressing Goal #2: Improve strength R UE 4- to 4/5 Goal to be met by: 03/13/18 Progress towards goal: Progressing Goal #3: pt report ability to perform ADL's independently with less pain Goal to be met by: 03/13/18 Progress towards goal: Progressing Goal #4: Normal sleep pattern. Goal to be met by: 01/21/15 Progress towards goal: Partially Met (Reports sleeping better longer,but sleeps on sofa propped up partially) Plan Dates of Geriatric Physical Therapist Goals: 03/13/18 Expiration date of current Insurance Approval:: NA PLAN: Cont. skilled PT per RTC protocol,was 8 weeks post-op yesterday.
--- NOTE | 2018-03-13 15:28 | RS.PTSUM ---
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 pt reports that she has trouble placing RUE on desk to write due to pain. Objective Measurements/Presentation: ROM R shld: PROM flex 118, abd 73, ER 54. pt continues with pain at end ROM. No swelling noted in R UE. G Codes: n/a Source of G Code Score: n/a - Short Term Goals Goal #1: pt independent with initial HEP Goal to be met by: 02/20/18 Progress towards Goal:: Met (pt independent with the initial HEP.) Goal #2: pt with improved AAROM R shld flex 65 abd 45 Goal to be met by: 02/20/18 Progress towards Goal:: Met Goal #3: pt rate pain <7/10 with activity Goal to be met by: 02/20/18 Progress towards Goal:: Met Goal #4: pt able to don/doff brace independently Goal to be met by: 02/20/18 Progress towards Goal:: Met (Able to doff,needs assist with donning) - Rotary Planer Set Up Operator Goals Goal #1: pt with improved R shld ROM flex 125 abd 90, ER 60 Goal to be met by: 04/10/18 (goal modified partially met on 03/13/18 flex, ER abd only 73) Goal #2: Improve strength R UE 4- to 4/5 Goal to be met by: 04/10/18 Goal #3: pt report ability to perform ADL's independently with less pain Goal to be met by: 04/10/18 (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 Progress towards goal: Partially Met - Assessment Assessment of Improvement/Progress: pt has met all STG's. pt continues to be limited with ROM, strength, pain in R shld which is limiting functional mobility of RUE. Feel pt would continue to benefit from skilled PT to continue strengthening, stretching, to improve functional mobility. Summary: Patient has made progress towards goals., Patient demonstrates potential to gain increased function with therapy - Plan Plan: Continue Plan of Care (New order received to continue PT.) Frequency: 2-3 x a week Duration: 4 weeks Dates of Rotary Planer Set Up Operator Goals: 04/10/18 Expiration date of current Insurance Approval:: n/a
--- NOTE | 2018-03-15 15:01 | RS.OPPTDN ---
Subjective Date of Note: 03/15/18 Visit #: 19 Number of visits approved by Insurance: NA Date of Evaluation: 01/30/18 Payer Source: Insurance Treatment Diagnosis: acute complete traumatic rotator cuff tear, OA AC joint, impingement syn. Current Subjective/complaints:: No c/o. *Precautions: 03-06 ,patient is to wear sling at work or sleeping ,no abd. pillow Pain Assessment - Pain Description Pain Location: R shoulder Pain Description: Dull, Aching, Chronic Current Pain Intensity: 3/10 - Heat/Cryotherapy Treatment: Hot Pack, Cryotherapy (heat before exercises,cold after) Interventions - Exercise/Activities/Manual Therapy Exercises/Activities: 35 mins. reclined today,biceps/tricepsAROM with red theraband with elbow at side,IR/ER actively in pain free ROM.AAROM with 1 # wand for chest press,elevation ,IR/ER with arm at side. Total minutes of Exercise: 35 Manual Therapy: N/A Total minutes of Manual Therapy: 0 HOME EXERCISE PROGRAM: pt given written HEP including: finger opposition, wrist flex/ext, forearm sup/pronation, elbow flex/ext, pendulum ex. - Charges Timed Code Treatment Minutes: 35 Total Treatment Time: 60 Procedures billed for this date of service:: hp,ex 2,cp Assessment: Progressing ,has less muscle guarding present with each exercise today.Her passive and AAROM is increased.Her pain is averaging 3/10 ,but less frequent throughout the day.She continues to be compliant to recomendations of therapy staff. Patient Education: Education of diagnosis, Body/Joint mechanics, Home Exercise Program, Home Safety, Activity Modification, Education of Plan of Care Patient demonstrates compliance with HEP?: Yes Short Term Goals Goal #1: pt independent with initial HEP Goal to be met by: 02/20/18 Progress towards Goal:: Met (pt independent with the initial HEP.) Goal #2: pt with improved AAROM R shld flex 65 abd 45 Goal to be met by: 02/20/18 Progress towards Goal:: Met Goal #3: pt rate pain <7/10 with activity Goal to be met by: 02/20/18 Progress towards Goal:: Met Goal #4: pt able to don/doff brace independently Goal to be met by: 02/20/18 Progress towards Goal:: Met (Able to doff,needs assist with donning) Nutrient Management Specialist Goals Goal #1: pt with improved R shld ROM flex 125 abd 90, ER 60 Goal to be met by: 04/10/18 (goal modified partially met on 03/13/18 flex, ER abd only 73) Goal #2: Improve strength R UE 4- to 4/5 Goal to be met by: 04/10/18 Goal #3: pt report ability to perform ADL's independently with less pain Goal to be met by: 04/10/18 (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 Progress towards goal: Partially Met Plan Dates of Custodial Goals: 04/10/18 Expiration date of current Insurance Approval:: NA PLAN: Cont. skilled PT per RTC protocol,resulting in increased R shoulder motion /strength ,return to PLOF.
--- NOTE | 2018-03-18 16:18 | RS.OPPTDN ---
Subjective Date of Note: 03/18/18 Visit #: 20 Number of visits approved by Insurance: NA Date of Evaluation: 01/30/18 Payer Source: Insurance Treatment Diagnosis: acute complete traumatic rotator cuff tear, OA AC joint, impingement syn. Current Subjective/complaints:: Patient reports exercising the R UE frequently over the weekend.She is also working more hours this week,6-7 hour shift. *Precautions: 03-06 ,patient is to wear sling at work or sleeping ,no abd. pillow Pain Assessment - Pain Description Pain Location: R shoulder Pain Description: Sharp, Dull, Aching, Chronic Pain Description: sharp pain is at available end ROM when stretching Current Pain Intensity: 4/10 - Heat/Cryotherapy Treatment: Hot Pack, Cryotherapy (heat before/cold after exercises,15 mins. each ) Interventions - Exercise/Activities/Manual Therapy Exercises/Activities: 35 mins. seated today,biceps/tricepsAROM with red theraband with elbow at side,IR/ER actively in pain free ROM.AAROM all planes, multple reps. Total minutes of Exercise: 35 Manual Therapy: N/A Total minutes of Manual Therapy: 0 HOME EXERCISE PROGRAM: pt given written HEP including: finger opposition, wrist flex/ext, forearm sup/pronation, elbow flex/ext, pendulum ex. - Charges Timed Code Treatment Minutes: 35 Total Treatment Time: 65 Procedures billed for this date of service:: hp,ex 2,cp Assessment: Patient continues to have increased ROM in all directions ,except the ER continues to have moderately firm end feel.She has slept the past couple of nights without the sling .This is more comfortable for her.She is very attentive and motivated to improve. Patient Education: Education of diagnosis, Body/Joint mechanics, Home Exercise Program, Home Safety, Activity Modification, Education of Plan of Care Patient demonstrates compliance with HEP?: Yes Short Term Goals Goal #1: pt independent with initial HEP Goal to be met by: 02/20/18 Progress towards Goal:: Met (pt independent with the initial HEP.) Goal #2: pt with improved AAROM R shld flex 65 abd 45 Goal to be met by: 02/20/18 Progress towards Goal:: Met Goal #3: pt rate pain <7/10 with activity Goal to be met by: 02/20/18 Progress towards Goal:: Met Goal #4: pt able to don/doff brace independently Goal to be met by: 02/20/18 Progress towards Goal:: Met (Able to doff,needs assist with donning) [facility] Goals Goal #1: pt with improved R shld ROM flex 125 abd 90, ER 60 Goal to be met by: 04/10/18 (goal modified partially met on 03/13/18 flex, ER abd only 73) Goal #2: Improve strength R UE 4- to 4/5 Goal to be met by: 04/10/18 (N/A) Goal #3: pt report ability to perform ADL's independently with less pain Goal to be met by: 04/10/18 Progress towards goal: Progressing Goal #4: . Plan Dates of [facility] Goals: 04/10/18 Expiration date of current Insurance Approval:: NA PLAN: Cont. skilled PT per RTC protocol.
--- NOTE | 2018-03-20 15:20 | RS.CSNOTE ---
PT Case Note Date of Note: 03/20/18 Note: pt arrived and told Doug Guy PICC NURSE she suffered a fall yesterday in her home landing on R UE. PT and PICC NURSE spoke with patient and she reports significant increase in pain and decrease in ROM. Called and spoke with Kishan TURNER with Dr. Chaney and he advised to hold PT today and to have pt come in for appt at 9am 03/21/18. pt agreeable and will call physical therapy regarding future appts after ortho visit. Number of visits approved by Insurance: n/a Expiration date of current Insurance Approval:: n/a
== END 2018-04-04 23:59 ==
PROVIDERS: ATTEND Orthopaedic Surgery
DX: M75.121 Complete rotator cuff tear or rupture of right shoulder, not specified as traumatic (principal); M25.511 Pain in right shoulder; M25.611 Stiffness of right shoulder, not elsewhere classified; Z98.890 Other specified postprocedural states; M62.81 Muscle weakness (generalized)

== ENCOUNTER 2018-04-19 15:15 | Outpatient (RCR) ==
--- NOTE | 2018-04-05 16:21 | RS.PTSUM ---
Progress Note/Summary Date of Note: 04/05/18 Date of Evaluation: 01/30/18 Number of Visits: 21 Number of visits approved by Insurance: n/a Reporting Period for this Progress Note: 03/13/18-04/05/18 Current Complaints/Gains: pt suffered a fall on 03/20/18 and had increased pain. pt returned to MD who placed therapy on hold. pt returned to MD on 04/03/18 and gave pt order to return for therapy. pt reports MD also dc her sling. pt has begun to work full shifts at work. Objective Measurements/Presentation: ROM R shld AROM 118 flex, Abd 85, ER 61. pt progressing with decreased pain with ROM, reports is a dull ache. G Codes: n/a Source of G Code Score: n/a - Short Term Goals Goal #1: pt independent with initial HEP Goal to be met by: 02/20/18 Progress towards Goal:: Met (pt independent with the initial HEP.) Goal #2: pt with improved AAROM R shld flex 65 abd 45 Goal to be met by: 02/20/18 Progress towards Goal:: Met Goal #3: pt rate pain <7/10 with activity Goal to be met by: 02/20/18 Progress towards Goal:: Met Goal #4: pt able to don/doff brace independently Goal to be met by: 02/20/18 Progress towards Goal:: Met (Able to doff,needs assist with donning) - Yard Conductor Goals Goal #1: pt with improved R shld ROM flex 125 abd 90, ER 60 Goal to be met by: 04/19/18 (goal modified partially met on 03/13/18 flex, ER abd only 73) Progress towards goal: Progressing Goal #2: Improve strength R UE 4- to 4/5 Goal to be met by: 04/19/18 (N/A) Progress towards goal: Progressing Goal #3: pt report ability to perform ADL's independently with less pain Goal to be met by: 04/19/18 Progress towards goal: Progressing Goal #4: . - Assessment Assessment of Improvement/Progress: pt has met STG and progressing toward LTG' s. pt progress was limited due to fall and MD placing PT on hold. pt is improving with AROM as well as strength. Summary: Patient has made progress towards goals., Patient demonstrates potential to gain increased function with therapy - Plan Plan: Continue Plan of Care (order received from MD) Frequency: 2 X week Duration: 2 weeks Dates of Yard Conductor Goals: 04/19/18 Expiration date of current Insurance Approval:: n/a
--- NOTE | 2018-04-05 16:27 | RS.OPPTDN ---
Subjective Date of Note: 04/05/18 Visit #: 21 Number of visits approved by Insurance: na Date of Evaluation: 01/30/18 Payer Source: Insurance Treatment Diagnosis: acute complete traumatic rotator cuff tear, OA AC joint, impingement syn. Current Subjective/complaints:: Pleased with her progress,reports the shoulder is feelng better. *Precautions: 03-06 ,patient is to wear sling at work or sleeping ,no abd. pillow Pain Assessment - Pain Description Pain Location: R shoulder Pain Description: Dull, Aching Pain Description: minimal aching Current Pain Intensity: not rated - Heat/Cryotherapy Treatment: Hot Pack (20 mins. prior to exercises) Interventions - Exercise/Activities/Manual Therapy Exercises/Activities: 40 mins. for passive to AROM in all planes today,pulleys x 10 mins.Reviewed RTC protocol,she is 11 1/2 weeks post-op.PT present for ROM assessment ,and POC. Total minutes of Exercise: 40 Manual Therapy: N/A Total minutes of Manual Therapy: 0 HOME EXERCISE PROGRAM: pt given written HEP including: finger opposition, wrist flex/ext, forearm sup/pronation, elbow flex/ext, pendulum ex. - Charges Timed Code Treatment Minutes: 40 Total Treatment Time: 60 Procedures billed for this date of service:: hp,ex 3 Assessment: Patient has increased active shoulder motion with less intense pain.She is very compliant to all recommendations for her R shoulder.She is now working a full shift with out elevation of pain.We discussed the POC withthe PT present,progress per protocol ,initiate D/C plan within the next 2 weeks or possibly sooner. Patient Education: Education of diagnosis, Body/Joint mechanics, Home Exercise Program, Home Safety, Activity Modification, Education of Plan of Care Patient demonstrates compliance with HEP?: Yes Short Term Goals Goal #1: pt independent with initial HEP Goal to be met by: 02/20/18 Progress towards Goal:: Met (pt independent with the initial HEP.) Goal #2: pt with improved AAROM R shld flex 65 abd 45 Goal to be met by: 02/20/18 Progress towards Goal:: Met Goal #3: pt rate pain <7/10 with activity Goal to be met by: 02/20/18 Progress towards Goal:: Met Goal #4: pt able to don/doff brace independently Goal to be met by: 02/20/18 Progress towards Goal:: Met (Able to doff,needs assist with donning) Millinery Copyist Goals Goal #1: pt with improved R shld ROM flex 125 abd 90, ER 60 Goal to be met by: 04/10/18 Progress towards goal: Progressing Goal #2: Improve strength R UE 4- to 4/5 Goal to be met by: 04/10/18 (N/A) Progress towards goal: Progressing Goal #3: pt report ability to perform ADL's independently with less pain Goal to be met by: 04/10/18 Progress towards goal: Met Goal #4: . Goal to be met by: 01/21/15 Plan Dates of Millinery Copyist Goals: 04/10/18 Expiration date of current Insurance Approval:: na PLAN: Cont. skilled PT per RTC protocol.she is 11 1/2 weeks post-op.
--- NOTE | 2018-04-08 16:16 | RS.OPPTDN ---
Subjective Date of Note: 04/08/18 Visit #: 22 Number of visits approved by Insurance: na Date of Evaluation: 01/30/18 Payer Source: Insurance Treatment Diagnosis: acute complete traumatic rotator cuff tear, OA AC joint, impingement syn. Current Subjective/complaints:: Patient reports the shoulder is better,and currently has no pain. *Precautions: 03-06 ,patient is to wear sling at work or sleeping ,no abd. pillow Pain Assessment - Pain Description Pain Location: R shoulder Current Pain Intensity: 0 - Heat/Cryotherapy Treatment: Hot Pack (20 mins. prior to exercises) Interventions - Exercise/Activities/Manual Therapy Exercises/Activities: 30 mins. for passive to AAROM / AROM in all planes today, pulleys x 10 mins.3# wand exercises ,added corner or doorway stretches today in PAIN FREE ROM. Total minutes of Exercise: 30 Manual Therapy: N/A Total minutes of Manual Therapy: 0 HOME EXERCISE PROGRAM: pt given written HEP including: finger opposition, wrist flex/ext, forearm sup/pronation, elbow flex/ext, pendulum ex. 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 Patient Education: Education of diagnosis, Body/Joint mechanics, Home Exercise Program, Home Safety, Activity Modification, Education of Plan of Care Patient demonstrates compliance with HEP?: Yes Short Term Goals Goal #1: pt independent with initial HEP Goal to be met by: 02/20/18 Progress towards Goal:: Met (pt independent with the initial HEP.) Goal #2: pt with improved AAROM R shld flex 65 abd 45 Goal to be met by: 02/20/18 Progress towards Goal:: Met Goal #3: pt rate pain <7/10 with activity Goal to be met by: 02/20/18 Progress towards Goal:: Met Goal #4: pt able to don/doff brace independently Goal to be met by: 02/20/18 Progress towards Goal:: Met (Able to doff,needs assist with donning) Registered Respiratory Therapist Goals Goal #1: pt with improved R shld ROM flex 125 abd 90, ER 60 Goal to be met by: 04/10/18 Progress towards goal: Progressing Goal #2: Improve strength R UE 4- to 4/5 Goal to be met by: 04/10/18 (N/A) Progress towards goal: Progressing Goal #3: pt report ability to perform ADL's independently with less pain Goal to be met by: 04/10/18 Progress towards goal: Met Goal #4: . Goal to be met by: 01/21/15 Plan Dates of Assisted Goals: 04/10/18 Expiration date of current Insurance Approval:: na PLAN: Cont . skilled PT per TC protocol,will be 12 weeks post-op this Sunday.
--- NOTE | 2018-04-12 16:24 | RS.OPPTDN ---
Subjective Date of Note: 04/12/18 Visit #: 23 Number of visits approved by Insurance: na Date of Evaluation: 01/30/18 Payer Source: Insurance Treatment Diagnosis: acute complete traumatic rotator cuff tear, OA AC joint, impingement syn. Current Subjective/complaints:: Reports slight aching today,but no pain present in the R shoulder.She reports sleeping better,is planning to try sleeping in the bed this weekend if possible .She has been sleeping on a sofa in reclined postion. Pain Assessment - Pain Description Pain Location: R shoulder Pain Description: Dull, Aching Pain Description: mnimal Current Pain Intensity: not rated - Heat/Cryotherapy Treatment: Hot Pack (20 mins. prior to exercises), Cryotherapy Interventions - Exercise/Activities/Manual Therapy Exercises/Activities: 35 mins. for passive to AAROM / AROM in all planes today, pulleys x 10 mins.5# wand exercises ,in supine for chest press,overhead flexion ,then 1 # wand for IR /ER.Reviewed protocol for RTC. Total minutes of Exercise: 35 Manual Therapy: N/A Total minutes of Manual Therapy: 0 HOME EXERCISE PROGRAM: pt given written HEP including: finger opposition, wrist flex/ext, forearm sup/pronation, elbow flex/ext, pendulum ex. 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 Patient Education: Education of diagnosis, Body/Joint mechanics, Home Exercise Program, Home Safety, Activity Modification, Education of Plan of Care Patient demonstrates compliance with HEP?: Yes Short Term Goals Goal #1: pt independent with initial HEP Goal to be met by: 02/20/18 Progress towards Goal:: Met (pt independent with the initial HEP.) Goal #2: pt with improved AAROM R shld flex 65 abd 45 Goal to be met by: 02/20/18 Progress towards Goal:: Met Goal #3: pt rate pain <7/10 with activity Goal to be met by: 02/20/18 Progress towards Goal:: Met Goal #4: pt able to don/doff brace independently Goal to be met by: 02/20/18 Progress towards Goal:: Met (Able to doff,needs assist with donning) [facility] Goals Goal #1: pt with improved R shld ROM flex 125 abd 90, ER 60 Goal to be met by: 04/19/18 Progress towards goal: Progressing Goal #2: Improve strength R UE 4- to 4/5 Goal to be met by: 04/19/18 (N/A) Progress towards goal: Progressing Goal #3: pt report ability to perform ADL's independently with less pain Goal to be met by: 04/19/18 Progress towards goal: Met Goal #4: . Plan Dates of [facility] Goals: 04/10/18 Expiration date of current Insurance Approval:: na PLAN: Cont. skilled per RTC protocol,maximizing strength and motion ,return to highest LOF.
--- NOTE | 2018-04-15 16:30 | RS.OPPTDN ---
Subjective Date of Note: 04/15/18 Visit #: 24 Number of visits approved by Insurance: na Date of Evaluation: 01/30/18 Payer Source: Insurance Treatment Diagnosis: acute complete traumatic rotator cuff tear, OA AC joint, impingement syn. Current Subjective/complaints:: No c/o. *Precautions: 03-06 ,patient is to wear sling at work or sleeping ,no abd. pillow Pain Assessment - Pain Description Pain Location: R shoulder Pain Description: Dull, Aching Pain Description: fatigued at end of work day Current Pain Intensity: not rated - Heat/Cryotherapy Treatment: Hot Pack, Cryotherapy (heat before exercises,ice after) Interventions - Exercise/Activities/Manual Therapy Exercises/Activities: 35 mins. for passive to AAROM / AROM in all planes today, pulleys x 10 mins.5# wand exercises ,in supine for chest press,overhead flexion ,then 1 # wand for IR /ER.Passive streching in all directions .Reviewed protocol for RTC. Total minutes of Exercise: 35 Manual Therapy: N/A Total minutes of Manual Therapy: 0 HOME EXERCISE PROGRAM: pt given written HEP including: finger opposition, wrist flex/ext, forearm sup/pronation, elbow flex/ext, pendulum ex. - Charges Timed Code Treatment Minutes: 35 Total Treatment Time: 60 Procedures billed for this date of service:: hp,ex 2,cp Assessment: Patient progresing well has increaased passive and active motion , increased strength in the R shoulder.She is very motivated to improve , compliant to RTC protocol.We discussed the D/c plan for next session due to good progress. Patient Education: Education of diagnosis, Body/Joint mechanics, Home Exercise Program, Home Safety, Activity Modification, Education of Plan of Care Patient demonstrates compliance with HEP?: Yes Short Term Goals Goal #1: pt independent with initial HEP Goal to be met by: 02/20/18 Progress towards Goal:: Met (pt independent with the initial HEP.) Goal #2: pt with improved AAROM R shld flex 65 abd 45 Goal to be met by: 02/20/18 Progress towards Goal:: Met Goal #3: pt rate pain <7/10 with activity Goal to be met by: 02/20/18 Progress towards Goal:: Met Goal #4: pt able to don/doff brace independently Goal to be met by: 02/20/18 Progress towards Goal:: Met (Able to doff,needs assist with donning) 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 Plan Dates of Longterm Goals: 04/10/18 Expiration date of current Insurance Approval:: na PLAN: Cont PT one more session ,plan to D/C,review RTC protocol.
--- NOTE | 2018-04-19 16:24 | RS.OPPTDN ---
Subjective Date of Note: 04/19/18 Visit #: 25 Number of visits approved by Insurance: na Date of Evaluation: 01/30/18 Payer Source: Insurance Treatment Diagnosis: acute complete traumatic rotator cuff tear, OA AC joint, impingement syn. Current Subjective/complaints:: Pleased with her progress , still has slight difficulty with reaching behind her at waist level,but understands not to force rotation. *Precautions: 03-06 ,patient is to wear sling at work or sleeping ,no abd. pillow Pain Assessment - Pain Description Pain Location: R shoulder Pain Description: Dull, Aching Current Pain Intensity: not rated - Heat/Cryotherapy Treatment: Hot Pack (20 mis. prior to exercises) Interventions - Exercise/Activities/Manual Therapy Exercises/Activities: 40 mins. for passive to AAROM / AROM in all planes today, UE functional scale done with 62/80 score.HEP review and return demo of exercises.AROM measurements taken ,fefer to D/C by supervising PT. Total minutes of Exercise: 40 Manual Therapy: N/A HOME EXERCISE PROGRAM: pt given written HEP including: finger opposition, wrist flex/ext, forearm sup/pronation, elbow flex/ext, pendulum ex. - Charges Timed Code Treatment Minutes: 40 Total Treatment Time: 60 Procedures billed for this date of service:: hp,ex 3 Assessment: Goals met,is aware of D/C plan today. Patient Education: Education of diagnosis, Body/Joint mechanics, Home Exercise Program, Home Safety, Activity Modification, Education of Plan of Care Patient demonstrates compliance with HEP?: Yes Short Term Goals Goal #1: pt independent with initial HEP Goal to be met by: 02/20/18 Progress towards Goal:: Met (pt independent with the initial HEP.) Goal #2: pt with improved AAROM R shld flex 65 abd 45 Goal to be met by: 02/20/18 Progress towards Goal:: Met Goal #3: pt rate pain <7/10 with activity Goal to be met by: 02/20/18 Progress towards Goal:: Met Goal #4: pt able to don/doff brace independently Goal to be met by: 02/20/18 Progress towards Goal:: Met (Able to doff,needs assist with donning) Snf Goals Goal #1: pt with improved R shld ROM flex 125 abd 90, ER 60 Goal to be met by: 04/19/18 Progress towards goal: Met Goal #2: Improve strength R UE 4- to 4/5 Goal to be met by: 04/19/18 (N/A) Progress towards goal: Met Goal #3: pt report ability to perform ADL's independently with less pain Goal to be met by: 04/19/18 Progress towards goal: Met Goal #4: . Plan Dates of Video Coordinator Goals: 04/10/18 Expiration date of current Insurance Approval:: 04/19/18 PLAN: D/C due to good progress.
--- NOTE | 2018-04-23 10:09 | RS.OPPTDC ---
Date of Discharge: 04/19/18 Date of Evaluation: 01/30/18 Number of Visits: 25 Treatment Diagnosis: acute complete traumatic rotator cuff tear, OA AC joint, impingement syn. Current Level of Function: R shld ROM shld flex 133, abd 98, IR 47, ER 80. pt is independent with HEP . pt has improved to no longer wearing brace and able to use R UE with normal activities, continues to be limited with IR. Current Complaints/Gains: pt reports she is pleased with her progress and is compliant with HEP. Functional Outcome Measure UE Functional Index: 62 - G Codes & Severity Modifier G Codes & Modifier: n/a Source of G Code score: n/a Observation - Observation Posture: Forward Head, Rounded Shoulders Handedness: Right Gait - Gait Pattern General Gait Pattern Observation: No Deviations/Normal Interventions - Exercise/Activities/Manual Therapy Exercises/Activities: n/a Manual Therapy: N/A HOME EXERCISE PROGRAM: pt given written HEP including: finger opposition, wrist flex/ext, forearm sup/pronation, elbow flex/ext, pendulum ex. - Charges Timed Code Treatment Minutes: n/a Total Treatment Time: n/a Procedures billed for this date of service:: n/a Assessment Assessment: pt has met all goals. pt has made significant progress with ROM and strength and decreased pain. 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 Plan Reason for Discharge:: All Goals Met
== END 2018-05-05 23:59 ==
PROVIDERS: ATTEND Orthopaedic Surgery
DX: M75.121 Complete rotator cuff tear or rupture of right shoulder, not specified as traumatic (principal)

== ENCOUNTER 2018-10-04 15:00 | Outpatient (RCR) ==
--- NOTE | 2018-09-11 11:12 | RS.OPPTEV2 ---
Date of Note: 09/10/18 Visit #: 1 Number of visits approved by Insurance: pending Date of Evaluation: 09/10/18 Payer Source: Insurance Surgery Performed?: Yes (R rotator cuff debridement 08/27/18) Treatment Diagnosis: acute complete traumatic rotator cuff tear, OA AC joint, impingement syn. History of Condition/Mechanism of Injury:: pt underwent R rotator cuff repair on 01/2018 and suffered a fall in which resulted in re injury of R rot cuff repair. pt undwent rotator cuff debridement on 08/27/18 Prior Level of Function.....Patient was independent with: ADL's, Self Care, Work /Vocation, Caregiving, Ambulation/Mobility, Community Integration/Access Level of Function: R shld ROM shld flex 133, abd 98, IR 47, ER 80. pt is independent with HEP . pt has improved to no longer wearing brace and able to use R UE with normal activities, continues to be limited with IR. Functional Limitations: Sleep, Self Care, ADL's, Reaching, Pushing, Pulling, Lifting, Carrying Current Subjective/complaints:: pt states she is doing well after surgery. States MD told her she could leave sling off. Treatment Side (optional): Right *Precautions: no lifting with R UE Medical History Medical History: Unremarkable Medical History Comments:: asthma Surgical History Comments:: R rotator cuff repair 01/14/19. R rotator cuff debridement 08/27/18 Smoking Status: Former smoker Hx Home Medications: advair, effexor, synthroid, zyrtec Patient's Goals: Decrease pain in R shld. Pain Assessment - Pain Description Pain Location: R shld Pain Description: Aching Current Pain Intensity: 3 Worst Pain Intensity: 8 Functional Outcome Measure UE Functional Index: 23 - G Codes & Severity Modifier G Codes & Modifier: n/a Source of G Code score: n/a Observation - Observation Posture: Forward Head, Rounded Shoulders, Increased Thoracic Kyphosis Handedness: Right Gait - Gait Pattern General Gait Pattern Observation: No Deviations/Normal General Range of Motion: LUE WFL's. BLE WFL's. RUE elbow, wrist, hand WFL's Muscle Strength: LUE 5/5. BLE 5/5. RUE elbow flex/ext atleast 3/5, wrist 3/5 as noted by ROM Shoulder ROM: Left WFL's Shoulder Muscle Strength: Left WFL's - Right Shoulder ROM Right Shoulder Flexion: 116 (PROM) Right Shoulder Internal Rotation: 38 (PROM) Right Shoulder External Rotation: 17 (PROM) - Right Shoulder Strength Comments: not MMT due to surgery and only PROM ordered at this time. Palpation Palpation Findings: Tenderness Comments:: R shld in area of incision Sensation - Sensation Right Upper Extremity: Intact/Normal Left Upper Extremity: Intact/Normal Right Lower Extremity: Intact/Normal Left Lower Extremity: Intact/Normal Balance - Sitting Balance Static Sitting Balance: Normal Dynamic Sitting Balance: Normal - Standing Balance Static Standing Balance: Normal Dynamic Standing Balance: Normal - Heat/Cryotherapy Treatment: Cryotherapy Comments:: R shld Interventions - Exercise/Activities/Manual Therapy Exercises/Activities: pt performed pendulum with instruction for proper technique, AROM R wrist and elbow Manual Therapy: N/A HOME EXERCISE PROGRAM: pt given written HEP including pendulum, AROM R elbow/ wrist - Charges Timed Code Treatment Minutes: 42 Total Treatment Time: 53 Procedures billed for this date of service:: eval yesika, CP EVALUATION COMPLEXITY LEVEL EVALUATION COMPLEXITY LEVEL: HISTORY: Low, EXAM OF BODY SYSTEMS: Low, CLINICAL PRESENTATION: Low, CLINICAL DECISION MAKING: Low Assessment Assessment: pt presents with pain R shld s/p debridement of R rotator cuff. pt with decreased ROM R shld as well as weakness in R shld. Feel pt would benefit from skilled PT for therex for ROM progressing to strengthening to improve functional mobility. Patient Education: Home Exercise Program, Education of Plan of Care Rehab Potential: Good Short Term Goals Goal #1: pt independent with initial HEP Goal to be met by: 09/27/18 Goal #2: pt with improved AAROM R Shld flex 100, ER 20, IR 40 Goal to be met by: 09/27/18 Goal #3: pt rate pain <4/10 with activity Goal to be met by: 09/27/18 Intermediate Goals Goal #1: pt with improved R shld ROM flex 125, abd 90, ER 60 Goal to be met by: 10/18/18 Goal #2: Improve strength R UE 4-to 4/5 Goal to be met by: 10/18/18 (N/A) Goal #3: pt report ability to perform ADL's independently with less pain Goal to be met by: 10/18/18 Goal #4: . Plan - Treatment to be Provided Procedures: Therapeutic Exercises, Manual Therapy, Massage, Patient Education Modalities: Electrical Stimulation, Ultrasound/Phonophoresis, Class IV Laser, Cryotherapy, Hot Packs - Treatment Plan Frequency: 2-3x a week Duration: 6 weeks Dates of Intermediate Goals: 10/18/18 Expiration date of current Insurance Approval:: n/a - Treatment Code (1) Traumatic complete tear of right rotator cuff Code(s): S46.011A - STRAIN OF MUSC/TEND THE ROTATOR CUFF OF RIGHT SHOULDER, INIT Qualifiers: Encounter type: initial encounter Qualified Code(s): S46.011A - Strain of muscle(s) and tendon(s) of the rotator cuff of right shoulder, initial encounter (2) Pain in joint, shoulder region Code(s): M25.519 - PAIN IN UNSPECIFIED SHOULDER Qualifiers: Laterality: right Qualified Code(s): M25.511 - Pain in right shoulder (3) S/P rotator cuff repair Code(s): Z98.89 - OTHER SPECIFIED POSTPROCEDURAL STATES * DO NOT USE * (4) Stiffness of joint, shoulder region Qualifiers: Laterality: right Qualified Code(s): M25.611 - Stiffness of right shoulder , not elsewhere classified
--- NOTE | 2018-09-12 12:02 | RS.OPPTDN ---
Subjective Date of Note: 09/12/18 Visit #: 2 Number of visits approved by Insurance: na Date of Evaluation: 09/10/18 Payer Source: Insurance Treatment Diagnosis: acute complete traumatic rotator cuff tear, OA AC joint, impingement syn. Current Subjective/complaints:: Patient reports no current pain ,sleeping well, but cannot rest on the R shoulder. *Precautions: no lifting with R UE Pain Assessment - Pain Description Pain Location: R shldr. Pain Description: Dull, Aching Current Pain Intensity: 0 - Heat/Cryotherapy Treatment: Cryotherapy (15 mins. after ex) Interventions - Exercise/Activities/Manual Therapy Exercises/Activities: 25 mins. PROM in all directions,multiple reps. of each. Total minutes of Exercise: 25 Manual Therapy: N/A Total minutes of Manual Therapy: 0 HOME EXERCISE PROGRAM: pt given written HEP including pendulum, AROM R elbow/ wrist - Charges Timed Code Treatment Minutes: 25 Total Treatment Time: 40 Procedures billed for this date of service:: ex 2,cp Assessment: Patient tolerates the passive motion well,minimal cues to relax as exercises progress.She reports no pain and no crepitus is noted today. Patient Education: Education of diagnosis, Body/Joint mechanics, Home Exercise Program, Home Safety, Activity Modification, Education of Plan of Care Patient demonstrates compliance with HEP?: Yes Short Term Goals Goal #1: pt independent with initial HEP Goal to be met by: 09/27/18 Progress towards Goal:: Progressing Goal #2: pt with improved AAROM R Shld flex 100, ER 20, IR 40 Goal to be met by: 09/27/18 Progress towards Goal:: Progressing Goal #3: pt rate pain <4/10 with activity Goal to be met by: 09/27/18 Goal to be met by: 02/20/18 Progress towards Goal:: Met (Able to doff,needs assist with donning) Half-Way Goals Goal #1: pt with improved R shld ROM flex 125, abd 90, ER 60 Goal to be met by: 10/18/18 Goal #2: Improve strength R UE 4-to 4/5 Goal to be met by: 10/18/18 (N/A) Goal #3: pt report ability to perform ADL's independently with less pain Goal to be met by: 10/18/18 Goal #4: . Plan Dates of Half-Way Goals: 10/18/18 Expiration date of current Insurance Approval:: na PLAN: Cont. skilled PT to improve R shoulder function per RTC protocol.
--- NOTE | 2018-09-13 11:53 | RS.OPPTDN ---
Subjective Date of Note: 09/13/18 Visit #: 3 Number of visits approved by Insurance: na Date of Evaluation: 09/10/18 Payer Source: Insurance Treatment Diagnosis: acute complete traumatic rotator cuff tear, OA AC joint, impingement syn. Current Subjective/complaints:: Patient reports muscvle soreness after last PT session ,but no pain present. *Precautions: no lifting with R UE Pain Assessment - Pain Description Pain Location: R shoulder Pain Description: Tightness Current Pain Intensity: not rated - Heat/Cryotherapy Treatment: Cryotherapy (15 mins, after exercise) Interventions - Exercise/Activities/Manual Therapy Exercises/Activities: 25 mins. PROM in all directions,multiple reps. of each. Total minutes of Exercise: 25 Manual Therapy: N/A Total minutes of Manual Therapy: 0 HOME EXERCISE PROGRAM: pt given written HEP including pendulum, AROM R elbow/ wrist - Charges Timed Code Treatment Minutes: 25 Total Treatment Time: 40 Procedures billed for this date of service:: ex2,cp Assessment: Patient tolerates the passive exercises well.She has mild stretch discomfort only,no sharp or sudden pain present.She is compliant to HEP. Patient Education: Home Exercise Program, Activity Modification, Education of Plan of Care Patient demonstrates compliance with HEP?: Yes Short Term Goals Goal #1: pt independent with initial HEP Goal to be met by: 09/27/18 Progress towards Goal:: Progressing Goal #2: pt with improved AAROM R Shld flex 100, ER 20, IR 40 Goal to be met by: 09/27/18 Progress towards Goal:: Progressing Goal #3: pt rate pain <4/10 with activity Goal to be met by: 09/27/18 Progress towards Goal:: Progressing Goal to be met by: 02/20/18 Web Editor Goals Goal #1: pt with improved R shld ROM flex 125, abd 90, ER 60 Goal to be met by: 10/18/18 Goal #2: Improve strength R UE 4-to 4/5 Goal to be met by: 10/18/18 (N/A) Goal #3: pt report ability to perform ADL's independently with less pain Goal to be met by: 10/18/18 Goal #4: . Plan Dates of Web Editor Goals: 10/18/18 Expiration date of current Insurance Approval:: 10/18/18 PLAN: Cont. skilled PT per RTC protocol,maximize motion and strength in R UE.
--- NOTE | 2018-09-16 13:56 | RS.OPPTDN ---
Subjective Date of Note: 09/16/18 Visit #: 4 Number of visits approved by Insurance: na Date of Evaluation: 09/10/18 Payer Source: Insurance Treatment Diagnosis: acute complete traumatic rotator cuff tear, OA AC joint, impingement syn. Current Subjective/complaints:: No c/o. *Precautions: no lifting with R UE Pain Assessment - Pain Description Pain Location: R shoulder Pain Description: Dull, Aching Current Pain Intensity: 1-2 - Heat/Cryotherapy Treatment: Cryotherapy (15 mins. after ex.) Interventions - Exercise/Activities/Manual Therapy Exercises/Activities: 40 mins. total of Phase II today ,pendulums for warm up, AAROM to AROM ,3/15 each of isometrics,shoulder flexion ,IR/ER scaption, abduction in sitting position.Also did postural pullbacks motion ,and emphasized scapular protraction. Total minutes of Exercise: 40 Manual Therapy: N/A Total minutes of Manual Therapy: 0 HOME EXERCISE PROGRAM: pt given written HEP including pendulum, AROM R elbow/ wrist - Charges Timed Code Treatment Minutes: 40 Total Treatment Time: 55 Procedures billed for this date of service:: ex 3,cp Assessment: Patient progressing ,has increased passive and active motion today.She fatigues easily with overhead positions ,but no sharp pain reported.She has good scapular mobiity.She is motivated to improve. Patient Education: Education of diagnosis, Body/Joint mechanics, Home Exercise Program, Home Safety, Activity Modification, Education of Plan of Care Patient demonstrates compliance with HEP?: Yes Short Term Goals Goal #1: pt independent with initial HEP Goal to be met by: 09/27/18 Progress towards Goal:: Progressing Goal #2: pt with improved AAROM R Shld flex 100, ER 20, IR 40 Goal to be met by: 09/27/18 Progress towards Goal:: Progressing Goal #3: pt rate pain <4/10 with activity Goal to be met by: 09/27/18 Progress towards Goal:: Progressing Goal to be met by: 02/20/18 Fpc Goals Goal #1: pt with improved R shld ROM flex 125, abd 90, ER 60 Goal to be met by: 10/18/18 Goal #2: Improve strength R UE 4-to 4/5 Goal to be met by: 10/18/18 (N/A) Progress towards goal: Progressing Goal #3: pt report ability to perform ADL's independently with less pain Goal to be met by: 10/18/18 Goal #4: . Plan Dates of Jewelry Designer Goals: 10/18/18 Expiration date of current Insurance Approval:: 10/18/18 PLAN: Cont. skilled PT to increase strength and motion in the R shoulder.
--- NOTE | 2018-09-18 14:18 | RS.OPPTDN ---
Subjective Date of Note: 09/18/18 Visit #: 5 Number of visits approved by Insurance: na Date of Evaluation: 09/10/18 Payer Source: Insurance Treatment Diagnosis: acute complete traumatic rotator cuff tear, OA AC joint, impingement syn. Current Subjective/complaints:: Patient reports increased soreness after last session ,used ice for relief ,but was better yesterday and today.She is compliant to HEP. *Precautions: no lifting with R UE Pain Assessment - Pain Description Pain Location: R shoulder Pain Description: Dull, Aching, Chronic Current Pain Intensity: not rated Interventions - Exercise/Activities/Manual Therapy Exercises/Activities: 50 mins. total of Phase II today ,pendulums for warm up, AAROM to AROM ,3/15 each of isometrics,shoulder flexion ,IR/ER scaption, abduction in sitting position.1/2 to 1# resistance used today with patient in reclined position. Total minutes of Exercise: 50 Manual Therapy: N/A Total minutes of Manual Therapy: 0 HOME EXERCISE PROGRAM: pt given written HEP including pendulum, AROM R elbow/ wrist - Charges Timed Code Treatment Minutes: 50 Total Treatment Time: 50 Procedures billed for this date of service:: ex 3 Assessment: Patient progressing well increased PROM and AROM,able to reachwith the R UE and place her hand to the back of her head with report of tightness and stretch,but no sharp pin present.She does have limited IR ,but understands the protocol ,and to not force any motion.She is 2 weeks post-op at this time. Patient Education: Education of diagnosis, Body/Joint mechanics, Home Exercise Program, Home Safety, Activity Modification, Education of Plan of Care Patient demonstrates compliance with HEP?: Yes Short Term Goals Goal #1: pt independent with initial HEP Goal to be met by: 09/27/18 Progress towards Goal:: Progressing Goal #2: pt with improved AAROM R Shld flex 100, ER 20, IR 40 Goal to be met by: 09/27/18 Progress towards Goal:: Partially Met (IR limited) Goal #3: pt rate pain <4/10 with activity Goal to be met by: 09/27/18 Progress towards Goal:: Progressing Goal to be met by: 02/20/18 Barn Hand Goals Goal #1: pt with improved R shld ROM flex 125, abd 90, ER 60 Goal to be met by: 10/18/18 Goal #2: Improve strength R UE 4-to 4/5 Goal to be met by: 10/18/18 (N/A) Progress towards goal: Progressing Goal #3: pt report ability to perform ADL's independently with less pain Goal to be met by: 10/18/18 Progress towards goal: Progressing Goal #4: . Plan Dates of Barn Hand Goals: 10/18/18 Expiration date of current Insurance Approval:: 10/18/18 PLAN: Cont. skilled PT per RTC protocol,to maximize motion and strength in the R shoulder.
--- NOTE | 2018-09-20 14:17 | RS.OPPTDN ---
Subjective Date of Note: 09/20/18 Visit #: 6 Number of visits approved by Insurance: na Date of Evaluation: 09/10/18 Payer Source: Insurance Treatment Diagnosis: acute complete traumatic rotator cuff tear, OA AC joint, impingement syn. Current Subjective/complaints:: Patient reports using ice and Ibuprofen as a precaution after last session.She feels she is doing well,is compliant to HEP. *Precautions: no lifting with R UE Pain Assessment - Pain Description Pain Location: R shoulder Pain Description: Dull, Aching Current Pain Intensity: not rtaed Interventions - Exercise/Activities/Manual Therapy Exercises/Activities: 35 mins. total of Phase II today ,pendulums for warm up, AAROM to AROM ,3/15 each of isometrics,shoulder flexion ,IR/ER scaption, abduction in sitting position.1/2 to 1# resistance used today with patient in reclined position. Total minutes of Exercise: 35 Manual Therapy: N/A Total minutes of Manual Therapy: 0 HOME EXERCISE PROGRAM: pt given written HEP including pendulum, AROM R elbow/ wrist - Charges Timed Code Treatment Minutes: 35 Total Treatment Time: 35 Procedures billed for this date of service:: ex 2 Assessment: Patient progressing as expected per RTC protocol,has improved motion with less intensity of pain with active ,functional motion.Her active IR is limited ,but reminded her she is only 3 1/2 weeks post-op. 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 Plan Dates of Yard Crane Operator Goals: 10/18/18 Expiration date of current Insurance Approval:: 10/18/18 PLAN: Cont. skilled PT to restore full AROM and eliminate pain. in the R shoulder.
--- NOTE | 2018-09-23 15:19 | RS.OPPTDN ---
Subjective Date of Note: 09/23/18 Visit #: 7 Number of visits approved by Insurance: na Date of Evaluation: 09/10/18 Payer Source: Insurance Treatment Diagnosis: acute complete traumatic rotator cuff tear, OA AC joint, impingement syn. Current Subjective/complaints:: Patient reports doing well,does have soreness with pressure to the R shoulder,but no current pain. *Precautions: no lifting with R UE Pain Assessment - Pain Description Pain Location: R shoulder Pain Description: Dull, Aching, Chronic Pain Description: soreness Current Pain Intensity: 0 - Heat/Cryotherapy Treatment: Cryotherapy (15 mins. after ex.) Interventions - Exercise/Activities/Manual Therapy Exercises/Activities: 40 mins. total of Phase II today ,pendulums for warm up, AAROM to AROM ,3/15 each of isometrics,shoulder flexion ,IR/ER scaption, abduction in sitting position.Postural pullbacks ,biceps curls with yellow theraband ,3/10 each. Total minutes of Exercise: 40 Manual Therapy: N/A Total minutes of Manual Therapy: 0 HOME EXERCISE PROGRAM: pt given written HEP including pendulum, AROM R elbow/ wrist - Charges Timed Code Treatment Minutes: 40 Total Treatment Time: 55 Procedures billed for this date of service:: ex 3 , cp Assessment: Progressing well in all areas,increased PROM,increased AROM,with fatigue .She has firm end feel present with IR when reaching toward the R hip pocket.She understands to not force this motion.She is compliant to HEP and motivated to improve. 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 Plan Dates of Senior Care Goals: 10/18/18 Expiration date of current Insurance Approval:: 10/18/18 PLAN: Cont. skilled PT per RTC protocol,maximize motion and strength for ADL's.
--- NOTE | 2018-09-25 15:12 | RS.OPPTDN ---
Subjective Date of Note: 09/25/18 Visit #: 8 Number of visits approved by Insurance: na Date of Evaluation: 09/10/18 Payer Source: Insurance Treatment Diagnosis: acute complete traumatic rotator cuff tear, OA AC joint, impingement syn. 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 Pain Assessment - Pain Description Pain Location: R shoulder Pain Description: soreness and fatigue - Heat/Cryotherapy Treatment: Cryotherapy (15 mins. after exercises) Interventions - Exercise/Activities/Manual Therapy Exercises/Activities: 45 mins. total of Phase II today ,passive stretches in all directions , then AAROM to AROM ,3/15 each of isometrics,shoulder flexion , IR/ER scaption,abduction in sitting position.Postural pullbacks ,biceps curls with yellow theraband ,3/10 each.Shoulder shrugs,CW/CCW circles,scapular pro/ retraction. Total minutes of Exercise: 45 Manual Therapy: N/A Total minutes of Manual Therapy: 0 HOME EXERCISE PROGRAM: pt given written HEP including pendulum, AROM R elbow/ wrist - Charges Timed Code Treatment Minutes: 45 Total Treatment Time: 60 Procedures billed for this date of service:: ex 3, cp Assessment: Continues to progress well,has increased strength in the R shoulder.Her passive motion is WNL,except for IR has firm end feel when combined with shoulder extension ( reaching behind her R hip ).She is compliant to HEP. Patient Education: Education of diagnosis, Body/Joint mechanics, Home Exercise Program, Home Safety, Activity Modification, Education of Plan of Care Patient demonstrates compliance with HEP?: Yes Short Term Goals Goal #1: pt independent with initial HEP Goal to be met by: 09/27/18 Progress towards Goal:: Met Goal #2: pt with improved AAROM R Shld flex 100, ER 20, IR 40 Goal to be met by: 09/27/18 Progress towards Goal:: Partially Met (IR limited) Goal #3: pt rate pain <4/10 with activity Goal to be met by: 09/27/18 Progress towards Goal:: Partially Met (has varied pain level dependent upon the tasks) Goal to be met by: 02/20/18 Dtp Operator Goals Goal #1: pt with improved R shld ROM flex 125, abd 90, ER 60 Goal to be met by: 10/18/18 Progress towards goal: Progressing Goal #2: Improve strength R UE 4-to 4/5 Goal to be met by: 10/18/18 (N/A) Progress towards goal: Progressing Goal #3: pt report ability to perform ADL's independently with less pain Goal to be met by: 10/18/18 Progress towards goal: Progressing Goal #4: . Plan Dates of Dtp Operator Goals: 10/18/18 Expiration date of current Insurance Approval:: 10/18/18 PLAN: Cont. skilled PT per RTC protocol.She is 4 was 4 weeks post-op yesterday.
--- NOTE | 2018-09-27 15:14 | RS.OPPTDN ---
Subjective Date of Note: 09/27/18 Visit #: 9 Number of visits approved by Insurance: na Date of Evaluation: 09/10/18 Payer Source: Insurance Treatment Diagnosis: acute complete traumatic rotator cuff tear, OA AC joint, impingement syn. Current Subjective/complaints:: No c/o,tolerating working part-time this week.She also reports not taking any meds. last night and was able to sleep well. *Precautions: no lifting with R UE Pain Assessment - Pain Description Pain Location: R shoulder Current Pain Intensity: 0 - Heat/Cryotherapy Treatment: Cryotherapy (15 mins. after exercises) Interventions - Exercise/Activities/Manual Therapy Exercises/Activities: Pendulum for warm-up , AROM with 1# resisatnce for overhead flexion ,scaption,IR/ER scaption,abduction in sitting position.Postural pullbacks ,biceps curls with 2 # ,3/10 each.Shoulder shrugs,CW /CCW circles,scapular pro/retraction.Forearm sup/pronation ,3/15 with 2#. Total minutes of Exercise: 45 Manual Therapy: N/A Total minutes of Manual Therapy: 0 HOME EXERCISE PROGRAM: pt given written HEP including pendulum, AROM R elbow/ wrist - Charges Timed Code Treatment Minutes: 45 Total Treatment Time: 60 Procedures billed for this date of service:: ex 3 , cp Assessment: Patient has increased strength and AROM with fatigue only,no pain reported.Each motion has progressed ,except the IR when reaching behind her , but tthis motion has firm end feel prresent.She is pleasd with her progress,has good understanding to not force any motion that causes pain. Patient Education: Body/Joint mechanics, Home Exercise Program, Home Safety, Activity Modification, Education of Plan of Care Patient demonstrates compliance with HEP?: Yes Short Term Goals Goal #1: pt independent with initial HEP Goal to be met by: 09/27/18 Progress towards Goal:: Met Goal #2: pt with improved AAROM R Shld flex 100, ER 20, IR 40 Goal to be met by: 09/27/18 Progress towards Goal:: Partially Met (IR limited) Goal #3: pt rate pain <4/10 with activity Goal to be met by: 09/27/18 Progress towards Goal:: Partially Met (has varied pain level dependent upon the tasks) Goal to be met by: 02/20/18 [place] Upholsterer Goals Goal #1: pt with improved R shld ROM flex 125, abd 90, ER 60 Goal to be met by: 10/18/18 Goal #2: Improve strength R UE 4-to 4/5 Goal to be met by: 10/18/18 (N/A) Progress towards goal: Progressing Goal #3: pt report ability to perform ADL's independently with less pain Goal to be met by: 10/18/18 Progress towards goal: Progressing Goal #4: . Plan Dates of [employer] Upholsterer Goals: 10/18/18 Expiration date of current Insurance Approval:: 10/18/18 PLAN: Cont. skilled PT to maximize strength and motion in the R sholuder , per RTC protocol.
--- NOTE | 2018-09-30 14:20 | RS.CXNS ---
Date of scheduled appointment: 09/30/18 Type: Cancel Reason for Cancel/NS: Called ,is sick today.
--- NOTE | 2018-10-02 16:21 | RS.OPPTDN ---
Subjective Date of Note: 10/02/18 Visit #: 10 Number of visits approved by Insurance: na Date of Evaluation: 09/10/18 Payer Source: Insurance Treatment Diagnosis: acute complete traumatic rotator cuff tear, OA AC joint, impingement syn. Current Subjective/complaints:: Patient had follow-up appt. today with Ortho ,good report.the internal rotation is lmited ,but we will cont. to focus on this ,along with the Phase 3 part of RTC protocol.She also worked approx. 5 1/2 hours today,tolerated it well. *Precautions: no lifting with R UE Pain Assessment - Pain Description Current Pain Intensity: not rated today Interventions - Exercise/Activities/Manual Therapy Exercises/Activities: UBE x 5 mins.for warm-up , AROM with red t-band rersistance all directions,contract-relax to external rotators to assist passive IR.Postural pulbacks ,then pulldowns with red t-band.All exercises 04/19 today. Total minutes of Exercise: 50 Manual Therapy: N/A Total minutes of Manual Therapy: 0 HOME EXERCISE PROGRAM: pt given written HEP including pendulum, AROM R elbow/ wrist - Charges Timed Code Treatment Minutes: 45 Total Treatment Time: 50 Procedures billed for this date of service:: ex 3 Assessment: R shoulder ROM is WFL,except IR continues to have firm end feel present.The strength is improving ,has better eccentric control.She c/o fatigue durng AROM resistive exercises ,but no sharp pain.She feels that she is close to sharp pain with R shoulder abducted to 90 ,with the elbow fully extended.She understands to not force any terminal stretch,as she can function for ADL's with less ROM.Reaching behind her back showed no significant change after contract-relax.She can benefit from further strengthening to tolerate home tasks ,and while at work. Patient Education: Education of diagnosis, Body/Joint mechanics, Home Exercise Program, Home Safety, Activity Modification, Education of Plan of Care Patient demonstrates compliance with HEP?: Yes Short Term Goals Goal #1: pt independent with initial HEP Goal to be met by: 09/27/18 Progress towards Goal:: Met Goal #2: pt with improved AAROM R Shld flex 100, ER 20, IR 40 Goal to be met by: 09/27/18 Progress towards Goal:: Partially Met (IR limited) Goal #3: pt rate pain <4/10 with activity Goal to be met by: 09/27/18 Progress towards Goal:: Partially Met (has varied pain level dependent upon the tasks) Goal to be met by: 02/20/18 Skilled Nursing Goals Goal #1: pt with improved R shld ROM flex 125, abd 90, ER 60 Goal to be met by: 10/18/18 Goal #2: Improve strength R UE 4-to 4/5 Goal to be met by: 10/18/18 (N/A) Progress towards goal: Progressing Goal #3: pt report ability to perform ADL's independently with less pain Goal to be met by: 10/18/18 Progress towards goal: Progressing Goal #4: . Plan Dates of Weigher And Charger Goals: 10/18/18 Expiration date of current Insurance Approval:: 10/18/18 PLAN: Cont. skilled PT to maximze strength and motion in the R shoulder.
--- NOTE | 2018-10-04 16:20 | RS.OPPTDN ---
Subjective Date of Note: 10/04/18 Visit #: 10 Number of visits approved by Insurance: [id number] Date of Evaluation: 09/10/18 Payer Source: Insurance Treatment Diagnosis: acute complete traumatic rotator cuff tear, OA AC joint, impingement syn. Current Subjective/complaints:: Patient denies any pain currently. Reports she does not take prescription pain meds, only intermittently takes Ibuprofen. *Precautions: no lifting with R UE - Heat/Cryotherapy Treatment: Cryotherapy (15 mins to the R shoulder in sitting following therex) Interventions - Exercise/Activities/Manual Therapy Exercises/Activities: UBE x 4 mins forward, 2 retro with moderate resistance ( NOT included in total time). Patient receives AAROM all directions to the R shoulder mostly concentrating on IR. Multiple reps of contract/relax and isometrics all directions again, focusing on IR/ER. She performs remainder activities in standing: Red tband shoulder flexion, extension, bilateral UE ER , IR, and bilateral shoulder horizontal abd 3/10. Scap retraction using red tband over 1# wand for scap retraction 3/10. Pull downs at multigym with red tband 3/10. Instructed in red tband bilateral shoulder ER, horizontal abd, and scap retraction for home. Total minutes of Exercise: 33 Manual Therapy: N/A HOME EXERCISE PROGRAM: pt given written HEP including pendulum, AROM R elbow/ wrist - Charges Timed Code Treatment Minutes: 33 Total Treatment Time: 54 Procedures billed for this date of service:: cp, ex2 Assessment: Patient presents no with no pain to the R shoulder today. She is advancing with strengthening activities today with mild resistance tbands with also instructing her to use at home with addition of 3 exercises today. AROM all motions WNL with exception of IR, however, patient is pleased with this amt and does not appear to limit her with ADLs. Patient Education: Home Exercise Program Patient demonstrates compliance with HEP?: Yes Short Term Goals Goal #1: pt independent with initial HEP Goal to be met by: 09/27/18 Progress towards Goal:: Met Goal #2: pt with improved AAROM R Shld flex 100, ER 20, IR 40 Goal to be met by: 09/27/18 Progress towards Goal:: Partially Met (IR limited) Goal #3: pt rate pain <4/10 with activity Goal to be met by: 09/27/18 Progress towards Goal:: Met (expressed today (no pain with therex, only general mm fatigue)) Goal to be met by: 02/20/18 [employer]fp Goals Goal #1: pt with improved R shld ROM flex 125, abd 90, ER 60 Goal to be met by: 10/18/18 Progress towards goal: Partially Met (Patient met FLEX and ABD goal with ER ~50 degrees today) Goal #2: Improve strength R UE 4-to 4/5 Goal to be met by: 10/18/18 (N/A) Progress towards goal: Progressing Goal #3: pt report ability to perform ADL's independently with less pain Goal to be met by: 10/18/18 Progress towards goal: Progressing Goal #4: . Plan Dates of [facility] Goals: 10/18/18 Expiration date of current Insurance Approval:: 10/18/18 PLAN: Patient to continue to improve IR and strength to the R UE
== END 2018-10-05 23:59 ==
PROVIDERS: ATTEND Orthopaedic Surgery
DX: S46.011D Strain of muscle(s) and tendon(s) of the rotator cuff of right shoulder, subsequent encounter (principal)